=== PATIENT | female | born 2000 | race Asian ===

== ENCOUNTER 2023-04-02 18:16 | Inpatient (IN) ==
[2023-04-02] MEDS ORDERED: SODIUM CHLORIDE 0.9% 1,000 ML IV STA (18:28)
--- NOTE | 2023-04-02 18:45 | Emergency Department Note ---
Impression & Plan Thrombocytopenia ADMIT ED Provider Note HPI: History obtained from patient. 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 Patient states that while she was home from [facility] over winter break she was admitted at a hospital in [place] and treated with steroids for an episode of ITP with vaginal bleeding. Patient states during that admission in late February her platelet count was 1. Patient states ultimately she was discharged home with a uptrending platelet count of 114, patient states about 10 days ago she began to have some issues with mild vaginal bleeding that has gotten progressively worse. Patient states she is also had intermittent epistaxis during this time and some bruising and petechiae to the lower extremities. ROS: - Per HPI Differential Diagnosis: ITP, TTP, DIC, sepsis, dysfunctional uterine bleeding, amongst other potential pathologies. *Outpatient medications and allergy history reviewed. PE: General: Alert HEENT: Normocephalic, trachea midline Eyes: Extraocular eye movement is intact, no scleral erythema Pulmonary: Clear to auscultation bilaterally, no wheezing Cardio: Regular rate and rhythm GI: Abdomen is soft to palpation : No suprapubic tenderness, noninvasive vaginal exam performed with female RN at the bedside (Toña) does not show any evidence of gross bleeding, otherwise normal-appearing external genitalia without any lesions or swelling MSK: No evidence of trauma or malformation of the extremities, no edema Skin: Fine and scattered petechiae noted to the bilateral lower extremities mostly below the knee as well as the bilateral upper extremities to a lesser extent, multiple bruises to the bilateral lower extremities, no open wounds or lacerations Neuro: Alert, no focal deficits Psychiatric: Cooperative INDEPENDENT INTERPRETATIONS: media monitor: (As interpreted by myself): - An order was placed for continuous cardiac monitoring - Patient was noted to be in sinus rhythm with a rate of 117 Interventions provided in ED: -Packed red blood cell transfusion, platelet transfusion, IV fluid bolus, IVIG, IV Decadron Medical Decision Making: IV was established and lab work obtained, patient was placed on pvc monitor. Lab work shows no leukocytosis, hemoglobin is low at 5.0, MCV is normal, platelet count returns critically low at 0. There is no acute kidney injury, troponin is negative, testing is negative. Type and screen was performed, given that patient's hemoglobin is 5.0 she was consented at the blood side for both platelet transfusion and blood transfusion. Patient was given IV Decadron and IVIG here in the ED. I suspect ITP, patient does have anemia but I suspect this is from her vaginal bleeding, she does not have any renal failure, low suspicion for TTP. Will send for peripheral smear. I discussed the patient's presentation with on-call hematology/oncology, Dr. Scott, who recommended the patient receive platelets, steroids, packed red blood cells, and IVIG as ordered. Patient can be admitted to the medicine service per Dr. Scott and he will evaluate the patient in the morning given that she is currently hemodynamically stable. I did also discuss the patient's case with on-call CUSTOMER SERVICE ADVISOR, Dr. Meyers, who recommended noninvasive vaginal exam to make sure there is no evidence of critical hemorrhaging. He states also given the patient's hemodynamic stability that he will plan to see the patient in the morning and routine consultation which I think is appropriate. Noninvasive vaginal examination was performed with female RN at the bedside (Toña) and there is no evidence of any gross bleeding. On my reassessment the patient remains hemodynamically stable with blood pressure at 116/89. I discussed the above findings with the on-call hospitalist, Dr. Mojica, and the patient was placed for admission in stable condition. Consultants/Discussions held with other healthcare providers: -Hematology, Dr. Scott -CUSTOMER SERVICE ADVISOR, Dr. Meyers -Hospitalist, Dr. Mojica Disposition discussion held by myself with: -Patient Critical care time: 45 minutes -Stabilization of patient with critical thrombocytopenia and anemia requiring both packed red blood cell transfusion and platelet transfusion, time spent at the bedside, discussion with other physicians/consultants and arrangement of admission. Diagnosis: 1. Thrombocytopenia, acute, severe 2. Vaginal bleeding, acute 3. Anemia, acute Disposition: Admission Fortunato Flor DO Emergency Medicine Past Med/Surg History Social History Smoking Status: Never smoker Feels Safe at Home: Yes Allergies Allergies Allergy/AdvReac Type Severity Reaction Status Date / Time No Known Allergies Allergy Verified 04/02/23 19:53 Home Meds Home Medications Medication Instructions Recorded Confirmed doxycycline hyclate 100 mg capsule 100 mg PO BID 04/02/23 04/02/23 ferrous sulfate 325 mg (65 mg 325 mg PO DAILY 04/02/23 04/02/23 iron) tablet Results & Data (ED) Vital Signs Vital Signs - 24 hr 04/02/23 18:22 04/02/23 19:04 04/02/23 19:04 Temperature 36.3 C L Temperature Source Skin Pulse Rate 137 H Pulse Rate from SpO2 Sensor Respiratory Rate 20 Respiratory Effort / Characteristics Non-Labored Spontaneous Respiratory Depth Normal Respiratory Pattern Regular Blood Pressure 113/58 L Blood Pressure Mean 76 Pulse Oximetry 100 100 100 Oxygen Delivery Method Room Air Room Air Room Air Oxygen Flow Rate 0 Sepsis Recent Fever Within 48 Hours No Sepsis New/Unexplained Change in Mental Status N/A Sepsis Action Taken by Nursing No Action Required 04/02/23 19:04 04/02/23 19:04 04/02/23 19:10 Temperature Temperature Source Pulse Rate 122 H 120 H 127 H Pulse Rate from SpO2 Sensor 119 H 122 H Respiratory Rate 23 20 Respiratory Effort / Characteristics Respiratory Depth Respiratory Pattern Blood Pressure Blood Pressure Mean Pulse Oximetry 100 100 Oxygen Delivery Method Oxygen Flow Rate Sepsis Recent Fever Within 48 Hours Sepsis New/Unexplained Change in Mental Status Sepsis Action Taken by Nursing 04/02/23 19:20 04/02/23 19:30 04/02/23 19:30 Temperature Temperature Source Pulse Rate 124 H 116 H Pulse Rate from SpO2 Sensor 123 H 118 H Respiratory Rate 34 H 21 Respiratory Effort / Characteristics Respiratory Depth Respiratory Pattern Blood Pressure 119/75 Blood Pressure Mean 82 Pulse Oximetry 100 100 Oxygen Delivery Method Oxygen Flow Rate Sepsis Recent Fever Within 48 Hours Sepsis New/Unexplained Change in Mental Status Sepsis Action Taken by Nursing 04/02/23 19:40 04/02/23 19:50 04/02/23 20:00 Temperature Temperature Source Pulse Rate 120 H 121 H Pulse Rate from SpO2 Sensor 122 H 118 H Respiratory Rate 19 24 Respiratory Effort / Characteristics Respiratory Depth Respiratory Pattern Blood Pressure 106/74 Blood Pressure Mean 90 Pulse Oximetry 100 100 Oxygen Delivery Method Oxygen Flow Rate Sepsis Recent Fever Within 48 Hours Sepsis New/Unexplained Change in Mental Status Sepsis Action Taken by Nursing 04/02/23 20:00 04/02/23 20:10 04/02/23 20:20 Temperature Temperature Source Pulse Rate 128 H 120 H 116 H Pulse Rate from SpO2 Sensor 127 H 122 H 117 H Respiratory Rate 24 34 H 42 H Respiratory Effort / Characteristics Respiratory Depth Respiratory Pattern Blood Pressure Blood Pressure Mean Pulse Oximetry 100 100 100 Oxygen Delivery Method Room Air Oxygen Flow Rate Sepsis Recent Fever Within 48 Hours Sepsis New/Unexplained Change in Mental Status Sepsis Action Taken by Nursing 04/02/23 20:46 Temperature 37.3 C Temperature Source Oral Pulse Rate 119 H Pulse Rate from SpO2 Sensor Respiratory Rate 18 Respiratory Effort / Characteristics Respiratory Depth Respiratory Pattern Blood Pressure 106/66 Blood Pressure Mean 79 Pulse Oximetry 100 Oxygen Delivery Method Oxygen Flow Rate 0 Sepsis Recent Fever Within 48 Hours Sepsis New/Unexplained Change in Mental Status Sepsis Action Taken by Nursing Laboratory Data 04/02/23 18:54 04/02/23 18:54 Lab Results 04/02/23 04/02/23 Range/Units 18:54 19:34 WBC 5.89 (4.8-10.8) K/ul RBC 1.93 L (4.20-5.40) M/uL Hgb 5.0 L* (12.0-16.0) g/dl Hct 16.5 L* (37.0-47.0) % MCV 85.5 (80.0-100.0) fL MCH 25.9 (25.0-34.0) pg MCHC 30.3 L (32.0-36.0) g/dL RDW Std Deviation 66.2 H (36.4-46.3) fL RDW Coeff of Benedicto 22.2 H (11.5-14.5) % Plt Count 0 L* (130-400) K/uL Immature Gran % (Auto) 0.5 % Neut % (Auto) 73.6 % Lymph % (Auto) 18.8 % [place] % (Auto) 5.3 % Eos % (Auto) 1.5 % Baso % (Auto) 0.3 % Neut # (Auto) 4.33 (1.40-6.50) K/uL Lymph # (Auto) 1.11 L (1.20-3.40) K/uL [place] # (Auto) 0.31 (0.11-0.59) K/uL Eos # (Auto) 0.09 (0.00-0.50) K/uL Baso # (Auto) 0.02 (0.00-0.20) K/uL Immature Gran # (Auto) 0.03 (0.01-0.20) K/uL Absolute Nucleated RBC 0.08 (0.00-0.12) K/uL Nucleated RBC % (auto) 1.4 % Platelet Estimate Signific. Decreased L (Normal) Polychromasia 1+ Anisocytosis Present Tear Drop Cells 1+ PT 11.3 (9.0-12.0) Seconds INR 1.0 (0.9-1.1) Sodium 137 (136-145) mmol/L Potassium 3.5 (3.5-5.1) mmol/L Chloride 107 (98-107) mmol/L Carbon Dioxide 24 (21-32) mmol/L Anion Gap 6 (3-11) BUN 16 (6-23) mg/dl Creatinine 0.79 (0.6-1.2) mg/dl Est Cr Clr Drug Dosing 85.7 ml/min Est GFR ( Amer) 124.9 ml/min Est GFR (Non-Af Amer) 107.8 ml/min BUN/Creatinine Ratio 20.3 H (10-20) Glucose 123 H (70-99(Fasting)) mg/dl Calcium 8.7 (8.6-10.3) mg/dl Total Bilirubin 0.5 (0.2-1.0) mg/dl AST 23 (13-39) U/L ALT 12 (7-52) U/L Alkaline Phosphatase 35 (34-104) U/L Troponin I High Sens 3.6 (0-14) pg/ml Total Protein 6.6 (6.0-8.3) gm/dl Albumin 3.8 (3.4-5.0) gm/dl Globulin 2.8 (2.5-4.0) gm/dl Albumin/Globulin Ratio 1.4 (0.9-2) Lipase 99 H (11-82) U/L HCG, Qual Negative (Negative) Blood Type AB Positive Blood Type Recheck AB Positive Antibody Screen NEGATIVE Crossmatch See Detail Administered Medications Discontinued Medications Dexamethasone Sodium Phosphate (DexamethasonePf 10 Mg/Ml Vial) 40 mg IV NOW ONE Stop: 04/02/23 19:26 Last Admin: 04/02/23 20:00 Dose: 40 mg Documented By: TAMARA Sodium Chloride (Nss) 1,000 mls @ 999 mls/hr IV .Q1H1M STA Stop: 04/02/23 19:28 Last Infusion: 04/02/23 20:35 Dose: Infused Documented By: Admin: 04/02/23 19:23 Dose: 999 mls/hr Documented By: TAMARA Discharge Plan Visit Data Chief Complaint: Bleeding Stated Complaint: BLEEDING - VAGINAL, NOSE - HX BLEEDING DISORDER ED Provider: Fortunato Flor Discharge Problem: Thrombocytopenia Forms Stand Alone Forms: My [facility] [employer] Prescriptions Prescriptions: No Action doxycycline hyclate 100 mg Capsule 100 mg PO BID Rx Instructions: COURSE ENDS 04/07/23. ferrous sulfate 325 mg (65 mg iron) Tablet 325 mg PO DAILY Referrals Referrals: PCP,NO [Physician] -
[2023-04-02 19:24] LABS: Pregnancy Test, Serum Negative (Negative)
[2023-04-02] MEDS ORDERED: dexAMETHasone**PF** 10 MG/ML VIAL IV ONE (19:25)
[2023-04-02 19:26] LABS: Albumin Globulin Ratio 1.4 (0.9-2); Albumin Level 3.8 gm/dl (3.4-5.0); BUN Creatinine Ratio 20.3 (10-20); Bilirubin,Total 0.5 mg/dl (0.2-1.0); Calcium 8.7 mg/dl (8.6-10.3); Creatinine Clr Calc Pharmacy 85.7 ml/min; Est GFR (African American) 124.9 ml/min; Est GFR (Non-African American) 107.8 ml/min; Globulin 2.8 gm/dl (2.5-4.0); Potassium 3.5 mmol/L (3.5-5.1); Total Protein 6.6 gm/dl (6.0-8.3)
[2023-04-02 19:27] LABS: Hematocrit (blood only) 16.5 % (37.0-47.0); White Blood Count 5.89 K/ul (4.8-10.8)
[2023-04-02] MEDS ORDERED: SODIUM CHLORIDE 0.9% 250 ML IV PRN (19:27)
[2023-04-02] MEDS ORDERED: IMMUNE GLOBULIN (HUMAN) SOLN IV ONE (19:32)
[2023-04-02 19:34] LABS: Troponin I High Sensitivity 3.6 pg/ml (0-14)
[2023-04-02 19:40] LABS: Prothrombin Time 11.3 Seconds (9.0-12.0)
[2023-04-02 19:43] LABS: Anisocytosis Present; Basophils # (auto) 0.02 K/uL (0.00-0.20); Basophils % (auto) 0.3 %; Eosinophils # (auto) 0.09 K/uL (0.00-0.50); Eosinophils % (auto) 1.5 %; Immature Granulocytes # (auto) 0.03 K/uL (0.01-0.20); Immature Granulocytes % (auto) 0.5 %; Lymphocytes # (auto) 1.11 K/uL (1.20-3.40); Lymphocytes % (auto) 18.8 %; Mean Corpuscular Hemoglobin 25.9 pg (25.0-34.0); Mean Corpuscular Hgb Conc 30.3 g/dL (32.0-36.0); Mean Corpuscular Volume 85.5 fL (80.0-100.0); Monocytes # (auto) 0.31 K/uL (0.11-0.59); Monocytes % (auto) 5.3 %; Neutrophils # (auto) 4.33 K/uL (1.40-6.50); Neutrophils % (auto) 73.6 %; Nucleated RBC # (auto) 0.08 K/uL (0.00-0.12); Nucleated RBC % (auto) 1.4 %; Platelet Estimate Signific. Decreased (Normal); Polychromasia 1+; RDW Coefficient of Variation 22.2 % (11.5-14.5); RDW Standard Deviation 66.2 fL (36.4-46.3); Red Blood Count 1.93 M/uL (4.20-5.40); Tear Drop Cells 1+
[2023-04-02 19:44] LABS: Platelet Count 0 K/uL (130-400)
--- NOTE | 2023-04-02 20:34 | History & Physical Report ---
Date of Service April 02, 2023 Assessment & Plan (1) Thrombocytopenia: Plan: ITP dx in February 2023 at [facility], which required blood transfusion, IVIG, and steroids Patient endorses ongoing vaginal bleeding x 10 days, with worsening nausea, fatigue, LOPEZ, and lower extremity bruising She reports that she is currently on her menstrual cycle, and that she has had an irregular menstrual cycle for the past 2 years: bleeding 7-10 days, stops 2-3 days, then bleeding restarts; she notes clots in her menstrual cycle Hgb 5.0 and HCT 16.5 on arrival Platelet count 0 2 units pRBCs ordered in the ED; 2 additional units ordered and will be held Timed H&H for 30-60 minutes following second unit transfusion IVIG given in the ED Dexamethasone 40 mg IV given in the ED No leukocytosis; afebrile; normotensive on arrival Peripheral blood smear ordered, pending FE panel, reticulocyte count, vitamin B12, folate level ordered, pending PT/INR WNL Lipase mildly elevated at 99 hCG negative EKG revealed sinus tachycardia at 119 bpm; QTc 455 ROLL GRINDER OPERATOR consulted Hematology consulted Continue dexamethasone 40 mg IV daily x 4 days for now (will defer to hematology regarding daily dexamethasone dosage) IVIG to be given per ITP protocol; 1g/kg once daily for 1-2 days, with second dose being held if adequate platelet response >50,000 A.m. CBC, BMP (2) History of syphilis: Plan: Per patient On doxycycline 100 mg p.o. twice daily Patient denies PCN allergy Continue doxycycline Working on obtaining records from [facility] Plan Disposition: Admit to PCU Full code Regular diet VTE PPx: SCDs, encourage ambulation as tolerated (hold chemical DVT PPx in setting of thrombocytopenia) History of Present Illness Chief Complaint: Bleeding Primary Care Provider: [facility] Jhon is a 22yo female with reported PMH of ITP. She presented for vaginal bleeding x 10 days, and intermittent nausea, lightheadedness, fever. Patient was recently at [facility] in February 2023 where she was diagnosed with ITP and received IVIG, blood transfusion, and steroids. Before that, she was at [facility] in the [place], where she reportedly did not follow with a clinical faculty. She first noticed bruising a couple years ago, but there was no formal diagnosis of ITP until this February. She reports that she has had an irregular menstrual cycle for the past 2 years; she says that she usually bleeds for 7-10 days, then stops for 2-3 days, then begins bleeding again. She is currently on her menstrual cycle. She also reports that she has had clots with vaginal bleeding, which have recently started to get worse; she recently switched from tampons to pads. Patient denies SOB at rest, CP, and pleuritic CP. Of note, the patient reports that she has been taking doxycycline 100 mg twice daily for a prior diagnosis of syphilis. She reports that this medication has made her nauseous. She also reports that she has been taking iron supplements daily. Patient is tachycardic at 120 bpm at time of admission; her BP taken manually in the right arm is 110/74 at time of admission. ED Course: IVIG Decadron 40 mg IV NSS 1000 mL IV 2 units pRBCs ROS: Patient endorses intermittent fever, chills, fatigue (every time she gets up), REESE, dizziness, lightheadedness, recurrent epistaxis (which has made it hard to breathe at night), LOPEZ and chest palpitations (when climbing steps and with exertion), nausea, and ongoing vaginal bleeding. Patient denies sweating, chest pain, SOB at rest, vomiting, diarrhea, blood in the urine or stool, or numbness or tingling down the legs or arms. Allergies Allergy/AdvReac Type Severity Reaction Status Date / Time No Known Allergies Allergy Verified 04/02/23 19:53 Home Medications Medication Instructions Recorded Confirmed Type doxycycline hyclate 100 mg capsule 100 mg PO BID 04/02/23 04/02/23 History ferrous sulfate 325 mg (65 mg 325 mg PO DAILY 04/02/23 04/02/23 History iron) tablet Past Med/Surg History Medical History (Updated 04/02/23 @ 21:16 by Errol Milligan PA-C) History of syphilis Social History Smoking Status: Never smoker Feels Safe at Home: Yes Review of Systems Review of Systems: See HPI above Physical Exam Physical Exam: General: no acute distress; fatigued; pleasant affect; pallor; non-toxic appearing; cooperative HEENT: normocephalic, atraumatic; no scleral icterus; PERRLA w/ EOMs intact; moist mucus membrane; mild epistaxis from the right nostril, dried blood, nonpatent; vision and hearing grossly intact Neck: supple; no lymphadenopathy; trachea midline Skin: warm, dry without signs of tenting; no cyanosis; peripheral petechiae noted on the LEs and UEs bilaterally; bruising noted on the legs CV: chest wall NTP; RRR, mildly tachycardic at 115 bpm; S1/S2 normal; no murmurs/rubs/gallops; pulses intact and symmetric at radial, DP, and PT Lungs: no acute respiratory distress; symmetrical chest wall expansion; clear breath sounds across all lung ingram w/o adventitious sounds; no wheezing ABD: Soft, NTP; BS present; no rebound/guarding MSK: no tics or fasciculations; no edema noted in the LEs b/l, nonerythematous Neuro: A&Ox3; normal mood and affect; fluent speech; no focal deficits; sensation grossly intact in the LEs B/L Results & Data Results & Data Vital Signs (Past 12 Hours) Vital Signs Temp Pulse Resp BP Pulse Ox O2 Del Method O2 Flow Rate 04/02/23 20:20 116 H 42 H 100 Room Air 04/02/23 20:10 120 H 34 H 100 04/02/23 20:00 128 H 24 100 04/02/23 20:00 106/74 04/02/23 19:50 121 H 24 100 04/02/23 19:40 120 H 19 100 04/02/23 19:30 116 H 21 100 04/02/23 19:30 119/75 04/02/23 19:20 124 H 34 H 100 04/02/23 19:10 127 H 20 100 04/02/23 19:04 120 H 23 100 04/02/23 19:04 122 H 04/02/23 19:04 100 Room Air 04/02/23 19:04 100 Room Air 0 04/02/23 18:22 36.3 C L 137 H 20 113/58 L 100 Room Air Laboratory Results Abnormal lab results 04/02/23 Range/Units 18:54 RBC 1.93 L (4.20-5.40) M/uL Hgb 5.0 L* (12.0-16.0) g/dl Hct 16.5 L* (37.0-47.0) % MCHC 30.3 L (32.0-36.0) g/dL RDW Std Deviation 66.2 H (36.4-46.3) fL RDW Coeff of Benedicto 22.2 H (11.5-14.5) % Plt Count 0 L* (130-400) K/uL Lymph # (Auto) 1.11 L (1.20-3.40) K/uL Platelet Estimate Signific. Decreased L (Normal) BUN/Creatinine Ratio 20.3 H (10-20) Glucose 123 H (70-99(Fasting)) mg/dl Lipase 99 H (11-82) U/L Crossmatch See Detail Code Status & VTE Plan Code Status Full code VTE Prophylaxis Plan VTE Prophylaxis will be ordered: Yes Supervising Physician Co-Signing Physician Notes Attending addendum: I have physically seen this patient, have supervised the CHALO's activities, and agree with the H&P unless as otherwise noted. Assessment and Plan: ITP- Previous hospitalization in [facility] 03/12 treated with blood transfusion, IVIG and IV steroids Initial platelet count 0 Dexamethasone 40 mg IV x 1 IVIG x 1 Transfusion of platelets as indicated Consult to hematology/oncology Repeat laboratories in a.m. Anemia- Secondary to 10 days of menstrual bleeding Received 2 units PRBCs in ED, O2 on hold Repeat laboratories following transfusion and every morning Admit to monitored bed Iron, TIBC, reticulocyte count, B12, folate levels ordered and pending Self-reported history of syphilis- For now continue doxycycline 100 mg p.o. twice daily Need to confirm workup and diagnosis from [facility] PG Care Time/CCT Total # of Minutes Spent Total Time Spent with Patient: Total time spent is greater than 50% in coordination of care (as documented) at patient's floor/unit and/or counseling patient: [place] [address] INT INP/OBS CARE 255MIN Patient Type New Medical Decision Making Moderate Complexity Diagnoses Thrombocytopenia D69.6 History of syphilis Z86.19
[2023-04-02] MEDS ORDERED: Octagam 10% IVIG 10 gram bottle IV SCH (21:45)
[2023-04-02 22:16] LABS: Reticulocyte % 6.1 % (0.5-2.0); Reticulocytes # 0.12 10^6/uL (0.02-0.10)
[2023-04-02] MEDS ORDERED: ACETAMINOPHEN 325 MG TAB PO PRN (23:26)
[2023-04-02] MEDS ORDERED: ONDANSETRON INJ 2 MG/ML 2 ML VIAL IV PRN (23:26)
[2023-04-02 23:53] LABS: Folate (Folic Acid),Ser orPlas 16.61 ng/ml (>5.38)
[2023-04-03] MEDS: Octagam 10% IVIG 20 gram bottle IV SCH ×4 (00:14→15:47)
[2023-04-03 06:11] LABS: BUN Creatinine Ratio 12.3 (10-20); Calcium 8.7 mg/dl (8.6-10.3); Creatinine Clr Calc Pharmacy 92.8 ml/min; Est GFR (African American) 137.4 ml/min; Est GFR (Non-African American) 118.6 ml/min; Potassium 3.9 mmol/L (3.5-5.1)
[2023-04-03 06:31] LABS: Hematocrit (blood only) 24.8 % (37.0-47.0); Hemoglobin 8.1 g/dl (12.0-16.0); Mean Corpuscular Hemoglobin 28.1 pg (25.0-34.0); Mean Corpuscular Hgb Conc 32.7 g/dL (32.0-36.0); Mean Corpuscular Volume 86.1 fL (80.0-100.0); Nucleated RBC % (auto) 1.7 %; Platelet Count 1 K/uL (130-400); RDW Coefficient of Variation 18.4 % (11.5-14.5); RDW Standard Deviation 57.2 fL (36.4-46.3); Red Blood Count 2.88 M/uL (4.20-5.40); White Blood Count 5.92 K/ul (4.8-10.8)
[2023-04-03 06:32] LABS: Basophils # (auto) 0.01 K/uL (0.00-0.20); Basophils % (auto) 0.2 %; Immature Granulocytes # (auto) 0.06 K/uL (0.01-0.20); Lymphocytes # (auto) 0.64 K/uL (1.20-3.40); Lymphocytes % (auto) 10.8 %; Monocytes # (auto) 0.12 K/uL (0.11-0.59); Neutrophils # (auto) 5.09 K/uL (1.40-6.50); Polychromasia 1+
--- NOTE | 2023-04-03 07:30 | Hospitalist Progress Note ---
"Date of Service April 03, 2023 Assessment & Plan (1) Thrombocytopenia: Plan: Jhon is a 22F w/ PMH of ITP who presents for vaginal bleeding, nausea, and dyspnea in the setting of ITP. ITP | Menorrhagia | Anemia - 10 days of worsening vaginal bleeding, nausea, fatigue, dyspnea and LE bruising - Hx of irregular menses > 2 years LMP 03/24/23 w/ ongoing bleeding Menses often last 2-3 weeks - Presenting w/ Hgb 5.0/Hct 16.6 and Plt 0.0 Now s/p 2 units PRBC and 2 units platelets Received IVIG 1g/kg and Dexamethasone 40 mg IV in ED - No leukocytosis, fever, or hypotension - Hcg negative, Pelvic ultrasound unremarkable - Peripheral smear pending, Iron panel/B12/Folate normal - Consults: appreciate recommendations OBGYN - Pelvic exam with heaving vaginal bleeding, recommending IV Estrogen (Premarin) to stabilize uterine lining Hematology - Recommending ongoing IVIG (likely 2-3 days), continued Dexamethasone, and TXA, with ongoing consideration for Romiplostim for refractory ITP Recommend also checking HIV, Hep B, Hep C from thrombocytopenia standpoint - Crossmatched platelets ordered, pending testing/receipt from blood bank (likely Tuesday/Tuesday) - Transfuse platelets to maintain count >10,000 - Transfuse PRBC to maintain Hgb > 7 --- Continue IVIG, Dexamethasone, and transfusions PRN for Hgb <7 and Plt < 10,000 (3rd unit platelets running, crossmatched platelets pending) --- Proceed with IV Estrogen and TXA, risk of clotting is low given Plt Count of 1, and direct stabilization of uterine bleeding is required (2) History of syphilis: Plan: - Noted by patient, potential false positive given known ITP - Patient endorses 1 sexual partner who is negative for syphilis - Continue Doxycycline 100 mg PO BID --- Patient likely to benefit from outpatient STD testing 1-2 months following blood transfusion. Would include testing for hepatitis, HIV, and syphilis at that time. (3) Menorrhagia: (4) Anemia: Plan FENGI: Regular diet Code: Full DVT Ppx: SCDs Isolation: Bleeding Precautions Dispo: PCU Admission and Anticipated Discharge Date Admission Date: April 02, 2023 Supervising Physician Co-Signing Physician Notes Attending Physician Supervision Note: I independently interviewed and examined the patient and verified the victoria history and physical, reviewed labs and image studies and agree with findings and care plan noted above. Subjective 04/03: No acute events overnight. Patient notes subjective improvement in her dys pnea and nausea, but vaginal bleeding persists. She believes that her ecchymosis and petechiae are mildly improved. She denies any chest pain, pleuritic pain, abdominal pain, headaches, or lightheadedness. Review of Systems Review of Systems: See HPI above Physical Exam Physical Exam: General: NAD; pallor (improved), non-toxic HEENT: NCAT, PERRLA/EOMI, MMM, R epistaxis (resolved) Neck: supple; no LAD; trachea midline CV: RRR, normal S1/S2, no MRG Lungs: non-labored, no wheezing/rhonchi/rales, CTAB GI:: Soft, no TTP; BS present; no rebound/guarding Ext: no LE edema, 2+ peripheral pulses Neuro: A&Ox3; normal mood and affect Skin: no cyanosis, petechiae present to bilateral feet, hands, and anterior chest; bruising noted on the legs bilaterally. Results & Data Results & Data Vital Signs (Past 12 Hours) Vital Signs Temp Pulse Resp BP Pulse Ox O2 Del Method O2 Flow Rate 04/03/23 04:03 36.6 C 91 H 14 120/72 97 04/03/23 04:03 36.6 C 93 H 14 131/78 98 04/03/23 04:02 36.6 C 93 H 14 131/78 98 04/03/23 03:34 36.5 C 89 14 125/75 96 04/03/23 03:19 36.5 C 93 H 14 121/58 L 96 04/03/23 03:13 36.6 C 93 H 14 125/89 97 04/03/23 02:50 36.9 C 86 18 124/76 99 04/03/23 02:13 36.8 C 91 H 14 137/83 93 04/03/23 02:03 102 H 04/03/23 02:00 Room Air 04/03/23 02:00 36.8 C 14 Room Air 04/03/23 02:00 Room Air 04/03/23 01:30 124/83 04/03/23 01:30 102 H 33 H 98 04/03/23 01:15 127/76 04/03/23 01:15 103 H 22 98 04/03/23 01:13 37.0 C 95 H 16 127/76 98 04/03/23 01:00 92 H 27 H 121/77 99 04/03/23 00:45 109 H 20 119/79 99 04/03/23 00:43 37.1 C 99 H 119/70 99 04/03/23 00:30 102 H 26 H 110/77 99 04/03/23 00:28 37.1 C 105 H 18 110/77 98 04/03/23 00:28 37.1 C 103 H 18 128/85 98 04/03/23 00:15 128/85 04/03/23 00:15 100 H 27 H 98 04/03/23 00:13 102 H 24 99 04/03/23 00:13 121/89 04/03/23 00:11 37 C 04/03/23 00:11 37 C 105 H 22 121/89 99 0 04/03/23 00:07 98 H 22 04/02/23 23:45 107 H 28 H 99 04/02/23 23:45 124/81 04/02/23 23:30 106 H 24 115/81 98 04/02/23 23:17 114 H 04/02/23 23:15 107 H 17 114/75 99 04/02/23 23:10 37.5 C 113 H 18 123/79 99 04/02/23 23:00 110 H 19 123/79 99 04/02/23 22:45 128/80 04/02/23 22:45 110 H 30 H 99 Room Air 04/02/23 22:40 112 H 22 99 04/02/23 22:40 37.4 C 110 H 22 128/80 99 0 04/02/23 22:31 113 H 18 98 04/02/23 22:31 126/74 04/02/23 22:30 116 H 14 99 04/02/23 22:25 37.4 C 112 H 19 126/74 99 0 04/02/23 22:10 115 H 29 H 98 Room Air 04/02/23 22:10 37.1 C 114 H 30 H 120/79 100 0 04/02/23 22:00 113 H 24 100 04/02/23 22:00 37.1 C 115 H 31 H 120/79 99 0 04/02/23 21:59 120/79 04/02/23 21:59 108 H 33 H 99 04/02/23 21:50 123 H 24 100 04/02/23 21:45 122 H 24 99 04/02/23 21:45 125/87 04/02/23 21:40 124 H 23 99 04/02/23 21:30 120/76 04/02/23 21:30 116 H 17 99 04/02/23 21:20 113 H 20 98 Room Air 04/02/23 21:19 92 04/02/23 21:19 122/65 04/02/23 21:19 37.2 C 117 H 19 122/65 100 0 04/02/23 21:10 100 04/02/23 21:04 37.6 C H 120 H 18 116/89 99 0 04/02/23 21:00 116/89 04/02/23 21:00 117 H 30 H 99 04/02/23 20:51 121 H 18 100 04/02/23 20:51 118/81 04/02/23 20:50 123 H 27 H 100 04/02/23 20:48 123 H 27 H 100 04/02/23 20:48 115/74 04/02/23 20:46 37.3 C 119 H 18 106/66 100 0 04/02/23 20:40 116 H 31 H 100 04/02/23 20:33 116 H 25 H 100 04/02/23 20:33 106/66 04/02/23 20:30 117 H 26 H 100 04/02/23 20:30 125/56 L 04/02/23 20:20 116 H 42 H 100 Room Air 04/02/23 20:10 120 H 34 H 100 04/02/23 20:00 128 H 24 100 04/02/23 20:00 106/74 04/02/23 19:50 121 H 24 100 04/02/23 19:40 120 H 19 100 04/02/23 19:30 116 H 21 100 04/02/23 19:30 119/75 04/02/23 19:20 124 H 34 H 100 Resident Activity Tracking Resident Involvement: Resident Care Provided Care Provided: Adult Hospital Medicine"
[2023-04-03] MEDS ORDERED: DOXYCYCLINE HYCLATE 100 MG CAP PO SCH (09:00)
[2023-04-03] MEDS ORDERED: FERROUS SULFATE 325 MG TAB PO SCH (09:00)
[2023-04-03] MEDS ORDERED: SODIUM CHLORIDE 0.9% 250 ML IV PRN ×4 (09:05→17:56)
[2023-04-03] MEDS: DOXYCYCLINE HYCLATE 100 MG CAP PO SCH ×2 (09:25→20:59)
[2023-04-03] MEDS: FERROUS SULFATE 325 MG TAB PO SCH (09:25)
[2023-04-03] MEDS ORDERED: ONDANSETRON INJ 2 MG/ML 2 ML VIAL IV PRN (09:28)
[2023-04-03] MEDS ORDERED: ESTROGENS, CONJUGATED 25 MG in SYRINGE 0 ML IV SCH (09:30)
--- NOTE | 2023-04-03 09:35 | OB/GYN Consultation ---
Date of Consultation April 03, 2023 Assessment & Plan (1) Menorrhagia: Discussed with Dr. Bowen as well from the medicine service would recommend starting IV estrogen at this stage just to stop her bleeding once bleeding stops which should be relatively quickly in the case of the use of IV estrogen would recommend switching to a control pill patient does not have a history of migraines with aura and has no history of DVT. Also would recommend imaging just to rule out anatomic pathology. Pelvic ultrasound is ordered discussed trends examined acid with Dr. Bowen agree this would not be unreasonable discussed that further platelet transfusions may be considered by the medical team as well at this stage no surgical role but will await imaging Note quantitative hCG is negative from yesterday do not suspect clearly. While her bleeding is certainly exacerbated by the low platelet count related to her ITP I do think an estrogen-containing control pill would be highly helpful we discussed also and again initially starting with IV Premarin to get into more immediate stop of the bleeding but additionally nausea will be addressed with ondansetron Transexamic acid Would start on OCP once Premarin has stabilized bleeding History of Present Illness Reason for Consultation: 22-year-old woman asked to consult on the morning of April 03, 2023 patient states she has had an ongoing heavy menses for the last 11 days her periods over the last 4 months have been extremely heavy lasting long periods of time and passing clots she is not currently on control at this time she is wondering about starting it in fact if she could. The patient was initially seen in the hospital in [facility] and was treated with steroids and IVIG and blood transfusion she is currently hospitalized and is received blood transfusion and several units of platelets she states she is continuing to bleed she feels okay hemoglobin is over 8 this morning She has a past history of possibly syphilis although I do not have records she is currently on doxycycline for this Attending Physician: Cyndy Lang MD Allergies Allergy/AdvReac Type Severity Reaction Status Date / Time No Known Allergies Allergy Verified 04/02/23 19:53 Home Medications Medication Instructions Recorded Confirmed Type doxycycline hyclate 100 mg capsule 100 mg PO BID 04/02/23 04/02/23 History ferrous sulfate 325 mg (65 mg 325 mg PO DAILY 04/02/23 04/02/23 History iron) tablet Patient History Medical History (Updated 04/03/23 @ 12:04 by Kendrick Scott MD) History of syphilis Surgical History No history of previous surgery Family History Other No known health problems Social History Smoking Status: Never smoker Second Hand Exposure: No; Do You Dip or Chew Tobacco: No; Tobacco Cessation Education Requested by Patient: No Hx Alcohol Use: Yes (Infrequent) Alcohol type: other Hx Substance Use: Yes Last Used Substance: Unknown Preferred Language: Burkinan Medical Grade Shoemaker Required: No Beliefs That Will Affect Care: None Current Living Situation: Other Current Living Situation Comment: [employer] Feels Safe at Home: Yes Safety Concerns: Feels Safe At This Time Assistive Devices: None Physical Exam Constitutional: WD/WN, vitals as above well developed and well nourished Respiratory: normal respiratory effort, lungs clear to auscultation normal respiratory effort Cardiovascular: RRR, no murmur, no edema Gastrointestinal (Abdomen): normal bowel sounds, soft, nontender, no hepatosplenomegaly Genitourinary: External exam reveals some dark blood in the vagina she is not hemorrhaging there are no clots speculum exam is not performed at bedside nursing is present Results & Data Vital Signs (Past 12 Hours) Vital Signs Temp Pulse Pulse Resp BP BP Pulse Ox 04/03/23 08:19 97.9 F 78 17 122/65 99 04/03/23 04:03 97.9 F 91 H 14 120/72 97 04/03/23 04:03 97.9 F 93 H 14 131/78 98 04/03/23 04:02 97.9 F 93 H 14 131/78 98 04/03/23 03:34 97.7 F 89 14 125/75 96 04/03/23 03:19 97.7 F 93 H 14 121/58 L 96 04/03/23 03:13 97.9 F 93 H 14 125/89 97 04/03/23 02:50 98.4 F 86 18 124/76 99 04/03/23 02:13 98.2 F 91 H 14 137/83 93 04/03/23 02:03 102 H 04/03/23 02:00 04/03/23 02:00 98.2 F 14 04/03/23 02:00 04/03/23 01:30 124/83 04/03/23 01:30 102 H 33 H 98 04/03/23 01:15 127/76 04/03/23 01:15 103 H 22 98 04/03/23 01:13 98.6 F 95 H 16 127/76 98 04/03/23 01:00 92 H 27 H 121/77 99 04/03/23 00:45 109 H 20 119/79 99 04/03/23 00:43 98.8 F 99 H 119/70 99 04/03/23 00:30 102 H 26 H 110/77 99 04/03/23 00:28 98.8 F 105 H 18 110/77 98 04/03/23 00:28 98.8 F 103 H 18 128/85 98 04/03/23 00:15 128/85 04/03/23 00:15 100 H 27 H 98 04/03/23 00:13 102 H 24 99 04/03/23 00:13 121/89 04/03/23 00:11 98.6 F 04/03/23 00:11 98.6 F 105 H 22 121/89 99 04/03/23 00:07 98 H 22 04/02/23 23:45 107 H 28 H 99 04/02/23 23:45 124/81 04/02/23 23:30 106 H 24 115/81 98 04/02/23 23:17 114 H 04/02/23 23:15 107 H 17 114/75 99 04/02/23 23:10 99.5 F 113 H 18 123/79 99 04/02/23 23:00 110 H 19 123/79 99 04/02/23 22:45 128/80 04/02/23 22:45 110 H 30 H 99 04/02/23 22:40 112 H 22 99 04/02/23 22:40 99.3 F 110 H 22 128/80 99 04/02/23 22:31 113 H 18 98 04/02/23 22:31 126/74 04/02/23 22:30 116 H 14 99 04/02/23 22:25 99.3 F 112 H 19 126/74 99 04/02/23 22:10 115 H 29 H 98 04/02/23 22:10 98.8 F 114 H 30 H 120/79 100 04/02/23 22:00 113 H 24 100 04/02/23 22:00 98.8 F 115 H 31 H 120/79 99 04/02/23 21:59 120/79 04/02/23 21:59 108 H 33 H 99 04/02/23 21:50 123 H 24 100 04/02/23 21:45 122 H 24 99 04/02/23 21:45 125/87 04/02/23 21:40 124 H 23 99 O2 Del Method O2 Flow Rate 04/03/23 08:19 Room Air 04/03/23 04:03 04/03/23 04:03 04/03/23 04:02 04/03/23 03:34 04/03/23 03:19 04/03/23 03:13 04/03/23 02:50 04/03/23 02:13 04/03/23 02:03 04/03/23 02:00 Room Air 04/03/23 02:00 Room Air 04/03/23 02:00 Room Air 04/03/23 01:30 04/03/23 01:30 04/03/23 01:15 04/03/23 01:15 04/03/23 01:13 04/03/23 01:00 04/03/23 00:45 04/03/23 00:43 04/03/23 00:30 04/03/23 00:28 04/03/23 00:28 04/03/23 00:15 04/03/23 00:15 04/03/23 00:13 04/03/23 00:13 04/03/23 00:11 04/03/23 00:11 0 04/03/23 00:07 04/02/23 23:45 04/02/23 23:45 04/02/23 23:30 04/02/23 23:17 04/02/23 23:15 04/02/23 23:10 04/02/23 23:00 04/02/23 22:45 04/02/23 22:45 Room Air 04/02/23 22:40 04/02/23 22:40 0 04/02/23 22:31 04/02/23 22:31 04/02/23 22:30 04/02/23 22:25 0 04/02/23 22:10 Room Air 04/02/23 22:10 0 04/02/23 22:00 04/02/23 22:00 0 04/02/23 21:59 04/02/23 21:59 04/02/23 21:50 04/02/23 21:45 04/02/23 21:45 04/02/23 21:40 PG Care Time/CCT Total # of Minutes Spent Total Time Spent with Patient: Total time spent is greater than 50% in coordination of care (as documented) at patient's floor/unit and/or counseling patient: Coding Level of Care Code 75625 IN/OBS CONSULT LVL 3,45M Diagnoses Menorrhagia N92.0
[2023-04-03] MEDS: Octagam 10% IVIG 10 gram bottle IV SCH (11:00)
[2023-04-03] MEDS: [UNRECOGNIZED DRUG - OTHER] IV SCH ×3 (11:00→22:20)
[2023-04-03] MEDS: DEXTROSE 5% IV SCH ×3 (11:00→22:20)
[2023-04-03] MEDS: ESTROGENS IV SCH ×3 (11:00→22:20)
--- NOTE | 2023-04-03 11:09 | Oncology Consultation ---
Date of Consultation April 03, 2023 Assessment & Plan (1) Thrombocytopenia: The patient has severe thrombocytopenia, presumed to be ITP. At this point she is refractory to immunosuppression. She has received Decadron, today she will get her second dose of IVIG. If she does not respond to this dose of IVIG will hold IVIG treatments and instead switch her over to anti-D/rhogam (she is Rh+, blood group AB+). Will continue the Decadron 40 mg p.o./IV for another couple of days. At this point it seems that the patient is immune refractory, is not responding to immunosuppressive medication. Going forward we may have to utilize thrombopoietin agents. I checked with our hospital formulary and romiplostim is not available. If needed I will try to get Romiplostim arranged for her while she is in the hospital. Explained to the patient that romiplostim takes about 3 to 7 days to kick in. The idea is that if she does not respond to immunosuppressive medication then she will benefit from TPO mimetic's; especially keeping in mind she also received immunosuppression in [place]. I would also recommend completing a workup from a thrombocytopenia standpoint including retesting her for HIV, HCV, hepatitis B, syphilis. I will recommend transfusing platelets to maintain a platelet count of at least 10,000/mcL. Explained to the primary team and the patient at this point she is platelet transfusion refractory due to massive activation of her immune system which was destroying the transfuse platelets. I have recommended crossmatched platelets if she does not respond to the next unit of transfused platelets. Recheck platelets 1 hour after transfusion. Monitor H&H closely along with platelet count closely. (2) Menorrhagia: Patient has menorrhagia, most likely related to bleeding. She is getting tranexamic acid, platelet transfusions regularly. Leave rest of the management per our HOSTING ENGINEER colleagues for management of severe menorrhagia. (3) Anemia: The patient does have severe anemia most likely related to recurrent bleeding. At this point I will recommend to monitor H&H and check for hemodynamic stability. At this point she is hemodynamically stable from anemia standpoint. She has received a couple of blood transfusions however her hemoglobin has been stable around 8 g/dL. Transfuse to maintain a hemoglobin of 7 g/dL. (4) History of syphilis: I am not sure whether the patient has a true diagnosis of syphilis or whether it was a false positive results in the setting of ITP. Will leave it to primary team further workup from a sexually transmitted disease standpoint. Reportedly the patient is sexually active with only 1 partner who is also negative for syphilis. Plan Hematology will continue to follow and make appropriate recommendations. Thank you for this interesting hematological consult. History of Present Illness Reason for Consultation: Immune thrombocytopenic purpura Primary versus secondary ? Diagnosis of syphilis Attending Physician: Cyndy Lang MD History of Present Illness The patient is a very pleasant 22-year-old woman, originally from [facility], goes to [employer] for school. She was in [place] in the month of February when she noticed some nasal bleeding as well as vaginal bleeding. She was admitted to [facility], was diagnosed with ITP. Subsequently the patient was started on Decadron for 4 days, received IVIG. During her admission to [facility] her platelet count was in single digits, she was discharged home on Decadron and regular monitoring of platelets with a platelet count in 40,000/mcL. She was asked to get her platelet counts checked regularly and was trying to coordinate care through [facility] however even before she could get platelet count checked here, noticed epistaxis and increased vaginal bleeding. She came to the [facility] ER where a CBC was performed, revealed a platelet count of 0. I was called last night about this patient, based on my discussion with the ER physician, we decided to start the patient on IVIG, Decadron 40 mg p.o. daily, transfusing platelets, rechecking platelets. This morning her platelet count only improved to 1000/mcL. She continues to have vaginal bleeding. She is being administered tranexamic acid. She complains of fatigue, ongoing vaginal bleed as well as nasal bleed. She was still downstairs for a pelvic ultrasound. As I discussed with the patient, she was previously noted to have a syphilis infection, she is sexually active with her boyfriend. However her boyfriend is negative. Based on my review and discussion with the patient she has not been retested for syphilis. She has not finished her course of antibiotics which have been prescribed as the antibiotics make her sick Reports no fever or chills. No nausea vomiting. Allergies Allergy/AdvReac Type Severity Reaction Status Date / Time No Known Allergies Allergy Verified 04/02/23 19:53 Home Medications Medication Instructions Recorded Confirmed Type doxycycline hyclate 100 mg capsule 100 mg PO BID 04/02/23 04/02/23 History ferrous sulfate 325 mg (65 mg 325 mg PO DAILY 04/02/23 04/02/23 History iron) tablet Patient History Medical History (Updated 04/03/23 @ 12:04 by Kendrick Scott MD) History of syphilis Surgical History No history of previous surgery Family History Other No known health problems Social History Smoking Status: Never smoker Second Hand Exposure: No; Do You Dip or Chew Tobacco: No; Tobacco Cessation Education Requested by Patient: No Hx Alcohol Use: Yes (Infrequent) Alcohol type: other Hx Substance Use: Yes Last Used Substance: Unknown Preferred Language: Egyptian Tube Lancer Required: No Beliefs That Will Affect Care: None Current Living Situation: Other Current Living Situation Comment: [employer] Feels Safe at Home: Yes Safety Concerns: Feels Safe At This Time Assistive Devices: None Results & Data Vital Signs (Past 12 Hours) Vital Signs Temp Pulse Pulse Resp BP BP Pulse Ox 04/03/23 08:19 36.6 C 78 17 122/65 99 04/03/23 04:03 36.6 C 91 H 14 120/72 97 04/03/23 04:03 36.6 C 93 H 14 131/78 98 04/03/23 04:02 36.6 C 93 H 14 131/78 98 04/03/23 03:34 36.5 C 89 14 125/75 96 04/03/23 03:19 36.5 C 93 H 14 121/58 L 96 04/03/23 03:13 36.6 C 93 H 14 125/89 97 04/03/23 02:50 36.9 C 86 18 124/76 99 04/03/23 02:13 36.8 C 91 H 14 137/83 93 04/03/23 02:03 102 H 04/03/23 02:00 04/03/23 02:00 36.8 C 14 04/03/23 02:00 04/03/23 01:30 124/83 04/03/23 01:30 102 H 33 H 98 04/03/23 01:15 127/76 04/03/23 01:15 103 H 22 98 04/03/23 01:13 37.0 C 95 H 16 127/76 98 04/03/23 01:00 92 H 27 H 121/77 99 04/03/23 00:45 109 H 20 119/79 99 04/03/23 00:43 37.1 C 99 H 119/70 99 04/03/23 00:30 102 H 26 H 110/77 99 04/03/23 00:28 37.1 C 105 H 18 110/77 98 04/03/23 00:28 37.1 C 103 H 18 128/85 98 04/03/23 00:15 128/85 04/03/23 00:15 100 H 27 H 98 04/03/23 00:13 102 H 24 99 04/03/23 00:13 121/89 04/03/23 00:11 37 C 04/03/23 00:11 37 C 105 H 22 121/89 99 04/03/23 00:07 98 H 22 04/02/23 23:45 107 H 28 H 99 04/02/23 23:45 124/81 04/02/23 23:30 106 H 24 115/81 98 04/02/23 23:17 114 H 04/02/23 23:15 107 H 17 114/75 99 04/02/23 23:10 37.5 C 113 H 18 123/79 99 O2 Del Method O2 Flow Rate 04/03/23 08:19 Room Air 04/03/23 04:03 04/03/23 04:03 04/03/23 04:02 04/03/23 03:34 04/03/23 03:19 04/03/23 03:13 04/03/23 02:50 04/03/23 02:13 04/03/23 02:03 04/03/23 02:00 Room Air 04/03/23 02:00 Room Air 04/03/23 02:00 Room Air 04/03/23 01:30 04/03/23 01:30 04/03/23 01:15 04/03/23 01:15 04/03/23 01:13 04/03/23 01:00 04/03/23 00:45 04/03/23 00:43 04/03/23 00:30 04/03/23 00:28 04/03/23 00:28 04/03/23 00:04/03/23 00:04/03/23 00:04/03/23 00:04/03/23 00:11 04/03/23 00:11 0 04/03/23 00:07 04/02/23 23:45 04/02/23 23:45 04/02/23 23:30 04/02/23 23:17 04/02/23 23:04/02/23 23:10
--- NOTE | 2023-04-03 11:09 | Ultrasound Report ---
ULTRASOUND OF THE PELVIS CLINICAL HISTORY: Menorrhagia. COMPARISON STUDY: No priors. TECHNIQUE: Real-time, grayscale, and color flow sonography of the pelvis is performed both transabdom inally and endovaginally. Images are reviewed in the transverse and longitudinal planes. The endovagi nal examination was performed for better assessment of the ovaries and adnexa. FINDINGS: Uterus: The uterus is normal in size and echotexture, measuring 6.4 x 2.6 x 4.9 cm. Endometrium: The endometrium is normal in appearance, and the endometrial stripe is normal in thickne ss measuring up to 0.2 cm. Ovaries: The ovaries are normal in size and morphology. The right ovary measures 3.4 x 3.0 x 3.3 cm a nd the left ovary measures 3.6 x 1.8 x 2.4 cm. Follicles are seen bilaterally. Normal Doppler wavefor ms are shown within both ovaries. Pelvis: There is no free fluid in the cul-de-sac. No concerning adnexal lesion is seen. IMPRESSION: No acute sonographic abnormality is identified in the pelvis. ACT 112: Negative or not required by law. Electronically signed by: Agustín Millard M.D. 04/03/2023 11:08 AM
[2023-04-03] MEDS ORDERED: DEXAMETHASONE SOD INJ 4 MG/ML VIAL IV SCH (12:00)
[2023-04-03] MEDS ORDERED: dexAMETHasone 40 MG in DEXTROSE 5% 25 ML IV SCH (12:00)
[2023-04-03] MEDS ORDERED: TRANEXAMIC ACID 100 MG/ML 10 ML VIAL IV SCH (13:30)
[2023-04-03] MEDS: TRANEXAMIC ACID IV SCH ×2 (14:53→22:19)
[2023-04-03] MEDS: SODIUM CHLORIDE 0.9% IV SCH ×2 (14:53→22:19)
[2023-04-03 15:59] LABS: Hematocrit (blood only) 21.8 % (37.0-47.0); Hemoglobin 7.2 g/dl (12.0-16.0); Platelet Count 4 K/uL (130-400)
--- NOTE | 2023-04-03 18:40 | History & Physical Bridge Note ---
Date of Service April 03, 2023 History & Physical Bridge Note This evening's labs revealed platelet count of only 4000, hemoglobin dropped to 7.2. Discussed this with the primary team resident, given that she continues to bleed it may be appropriate to transfuse her another unit of packed red blood cells. Transfuse another unit of platelets. Recheck platelets posttransfusion. Tomorrow we will check the platelets again and decide whether she needs to continue IVIG or needs to be transition over to RHOGAM. Transfuse crossmatch platelets when available. Try to keep the platelet count over 10,000/ul. I also spoke with the patient's nurse on the floor as result the patient herself. Reviewed some of the records from [place] which are available to the patient electronically. her syphilis RPR as well as confirmatory testing were positive. She was evaluated by pediatric ID specialist in [place] and they had recommended that the patient take doxycycline for 4 weeks. 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 I recommended that she finish her course of antibiotics as was recommended by pediatric infectious disease specialist in [place] Explained to the patient that over here we may have to switch her over to thrombopoietin agents if she continues to be thrombocytopenic and does not respond to immunosuppression Explained to the patient that immunosuppression with stronger agents like rituximab may backfire as that may worsen the underlying syphilis infection. Over the evening patient reported that vaginal bleeding had decreased however she continues to have nasal bleeding.
--- NOTE | 2023-04-03 21:03 | Electrocardiogram Report ---
Test Reason : Blood Pressure : / mmHG Vent. Rate : 119 BPM Atrial Rate : 119 BPM P-R Int : 138 ms QRS Dur : 074 ms QT Int : 324 ms P-R-T Axes : 069 042 020 degrees QTc Int : 455 ms Sinus tachycardia Otherwise normal ECG No previous ECGs available Confirmed by Alejandro Zendejas ([id number]) on 04/03/2023 9:02:32 PM Referred By: REFERRED SELF Confirmed By:Alejandro Zendejas
[2023-04-03 23:31] LABS: Hematocrit (blood only) 25.8 % (37.0-47.0); Hemoglobin 8.5 g/dl (12.0-16.0); Platelet Count 13 K/uL (130-400)
[2023-04-04] MEDS: [UNRECOGNIZED DRUG - OTHER] IV SCH (02:06)
[2023-04-04] MEDS: ESTROGENS IV SCH (02:06)
[2023-04-04] MEDS: DEXTROSE 5% IV SCH (02:06)
[2023-04-04] MEDS: SODIUM CHLORIDE 0.9% IV SCH ×3 (06:35→21:48)
[2023-04-04] MEDS: TRANEXAMIC ACID IV SCH ×3 (06:35→21:48)
[2023-04-04 06:58] LABS: Hematocrit (blood only) 26.3 % (37.0-47.0); Hemoglobin 8.8 g/dl (12.0-16.0); Mean Corpuscular Hemoglobin 29.1 pg (25.0-34.0); Mean Corpuscular Hgb Conc 33.5 g/dL (32.0-36.0); Mean Corpuscular Volume 87.1 fL (80.0-100.0); Nucleated RBC # (auto) 0.04 K/uL (0.00-0.12); Nucleated RBC % (auto) 0.4 %; Platelet Count 14 K/uL (130-400); RDW Coefficient of Variation 19.7 % (11.5-14.5); RDW Standard Deviation 57.4 fL (36.4-46.3); Red Blood Count 3.02 M/uL (4.20-5.40); White Blood Count 11.01 K/ul (4.8-10.8)
[2023-04-04 07:09] LABS: Basophils # (auto) 0.02 K/uL (0.00-0.20); Basophils % (auto) 0.2 %; Immature Granulocytes # (auto) 0.07 K/uL (0.01-0.20); Immature Granulocytes % (auto) 0.6 %; Lymphocytes # (auto) 1.07 K/uL (1.20-3.40); Lymphocytes % (auto) 9.7 %; Monocytes # (auto) 0.53 K/uL (0.11-0.59); Monocytes % (auto) 4.8 %; Neutrophils # (auto) 9.32 K/uL (1.40-6.50); Neutrophils % (auto) 84.7 %; Polychromasia 2+
--- NOTE | 2023-04-04 07:15 | Hospitalist Progress Note ---
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 ITP | Menorrhagia | Anemia - 10 days of worsening vaginal bleeding, nausea, fatigue, dyspnea and LE bruising - Hx of irregular menses > 2 years - Presenting w/ Hgb 5.0/Hct 16.6 and Plt 0.0 Now s/p 2 units PRBC and 3 units platelets - No leukocytosis, fever, or hypotension - Peripheral smear pending, Iron panel/B12/Folate normal - Consults: appreciate recommendations OBGYN -d/c IV estrogen to transition to PO. - control BID for first 3 days, then daily Hematology - -Recommending one more dose of IVIG, continued Dexamethasone, and TXA -Transfuse 1 more unit more of platelets - high likelihood that this is secondary ITP in the setting of active syphilis infection - Continue Doxy for 4 weeks - Transfuse platelets to maintain count >10,000 - Transfuse PRBC to maintain Hgb > 7 --- Continue IVIG, Dexamethasone, and transfusions PRN for Hgb <7 and Plt < 10,000 (3rd unit platelets running (2) History of syphilis: Plan: - Noted by patient, potential false positive given known ITP - Patient endorses 1 sexual partner who is negative for syphilis - Continue Doxycycline 100 mg PO BID --- Patient likely to benefit from outpatient STD testing 1-2 months following blood transfusion. Would include testing for hepatitis, HIV, and syphilis at that time. (3) Menorrhagia: (4) Anemia: Plan FENGI: Regular diet Code: Full DVT Ppx: SCDs Isolation: Bleeding Precautions Dispo: PCU Admission and Anticipated Discharge Date Admission Date: April 02, 2023 Supervising Physician Co-Signing Physician Notes I personally examined the patient and verified all victoria points of history and exam, discussed case, and agree with decision making with Dr Marbin Antony vaginal bleeding slows down and nosebleed slowing down some as well vitals noted nad heent nc at mmm breathing unlabored no accessory muscles good effort skin no rashes no pallor or icterus neuro no focal deficits ITP, menorrhagia, acute blood loss anemia, ?ITP triggered by ?syphillis - continue current care. appears to be stabilizing, hopefully home soon Subjective 04/03: No acute events overnight. Patient notes subjective improvement in her dyspnea and nausea, but vaginal bleeding persists. She believes that her ecchymosis and petechiae are mildly improved. She denies any chest pain, pleuritic pain, abdominal pain, headaches, or lightheadedness. 04/04: Evaluated at AM. Refers feeling better. Nose bleeding and vaginal bleeding seem to be improving. Denied any chest pain, abdominal pain, lightheadedness, headache or any other symptoms Review of Systems Review of Systems: See HPI above Physical Exam Constitutional: WD/WN, vitals as above Respiratory: normal respiratory effort, lungs clear to auscultation Cardiovascular: RRR, no murmur, no edema Gastrointestinal (Abdomen): normal bowel sounds, soft, nontender, no hepatosplenomegaly Results & Data Results & Data Vital Signs (Past 12 Hours) Vital Signs Temp Pulse Pulse Resp BP BP BP 04/04/23 04:39 86 04/04/23 04:18 36.7 C 58 L 18 114/67 04/03/23 23:26 04/03/23 22:45 36.6 C 82 14 124/82 04/03/23 21:09 36.8 C 78 14 128/77 04/03/23 21:08 36.8 C 78 14 128/77 04/03/23 20:28 36.6 C 89 14 136/86 04/03/23 19:28 36.6 C 92 H 14 136/86 Pulse Ox Pulse Ox O2 Del Method O2 Del Method 04/04/23 04:39 01/15/24 04:18 98 Room Air 04/03/23 23:26 98 Room Air 04/03/23 22:45 98 Room Air 04/03/23 21:09 98 04/03/23 21:08 98 04/03/23 20:28 98 04/03/23 19:28 98"
--- NOTE | 2023-04-04 07:33 | Gynecologic Progress Note ---
Date of Service April 04, 2023 Assessment & Plan (1) Menorrhagia: Plan: Bleeding is improved her platelet count is slightly better being managed by the medical team I think she should continue her control pill twice a day she had 3 doses of IV Premarin which clearly has helped discussed taking the control pill 2 times a day for the first 3 days and then once daily a prescription will be sent to her pharmacy we will follow-up with the patient in 1 to 2 weeks Admission and Anticipated Discharge Date Admission Date: April 02, 2023 Subjective Patient is much improved this morning she is only having minimal spotting she received 3 doses of Premarin IV and then now has been switched this morning to control pills I would recommend this twice a day for the first 3 days and then once daily Results & Data Vital Signs (Past 12 Hours) Vital Signs Temp Pulse Pulse Resp BP BP BP 04/04/23 04:39 86 04/04/23 04:18 98.1 F 58 L 18 114/67 04/03/23 23:26 04/03/23 22:45 97.9 F 82 14 124/82 04/03/23 21:09 98.2 F 78 14 128/77 04/03/23 21:08 98.2 F 78 14 128/77 04/03/23 20:28 97.9 F 89 14 136/86 Pulse Ox Pulse Ox O2 Del Method O2 Del Method 04/04/23 04:39 04/04/23 04:18 98 Room Air 04/03/23 23:26 98 Room Air 04/03/23 22:45 98 Room Air 04/03/23 21:09 98 04/03/23 21:08 98 04/03/23 20:28 98 PG Care Time/CCT Total # of Minutes Spent Total Time Spent with Patient: Total time spent is greater than 50% in coordination of care (as documented) at patient's floor/unit and/or counseling patient: Coding Level of Care Code 33532 SUB INP/OBS CARE Diagnoses Menorrhagia N92.0
[2023-04-04 08:52] LABS: Calcium 8.2 mg/dl (8.6-10.3); Potassium 4.1 mmol/L (3.5-5.1)
[2023-04-04 08:57] LABS: Creatinine Clr Calc Pharmacy 90.3 ml/min; Est GFR (Non-African American) 114.7 ml/min
[2023-04-04] MEDS ORDERED: NORGESTIMATE/ETHINYL ESTRAD 0.25/0.035MG DSPK PO SCH (09:00)
[2023-04-04] MEDS: Octagam 10% IVIG 10 gram bottle IV SCH (09:05)
[2023-04-04] MEDS ORDERED: SODIUM CHLORIDE 0.9% 250 ML IV PRN (09:25)
[2023-04-04] MEDS: NORGESTIMATE/ETHINYL ESTRAD 0.25/0.035MG DSPK PO SCH ×2 (09:56→20:39)
[2023-04-04] MEDS: FERROUS SULFATE 325 MG TAB PO SCH (09:56)
[2023-04-04] MEDS: CYANOCOBALAMIN (B-12) 500 MCG TABLET PO SCH (09:56)
[2023-04-04] MEDS: DOXYCYCLINE HYCLATE 100 MG CAP PO SCH ×2 (10:05→20:38)
[2023-04-04] MEDS: Octagam 10% IVIG 20 gram bottle IV SCH ×2 (11:31→13:02)
--- NOTE | 2023-04-04 13:19 | Billing Data ---
Date of Service April 04, 2023 Coding Level of Care Code 03901 SUB INP/OBS CARE MIN
[2023-04-04 15:15] LABS: Hematocrit (blood only) 27.7 % (37.0-47.0); Mean Corpuscular Hemoglobin 28.9 pg (25.0-34.0); Mean Corpuscular Hgb Conc 32.5 g/dL (32.0-36.0); Mean Corpuscular Volume 89.1 fL (80.0-100.0); Nucleated RBC # (auto) 0.07 K/uL (0.00-0.12); Nucleated RBC % (auto) 0.5 %; Platelet Count 39 K/uL (130-400); RDW Coefficient of Variation 20.3 % (11.5-14.5); RDW Standard Deviation 59.2 fL (36.4-46.3); Red Blood Count 3.11 M/uL (4.20-5.40); White Blood Count 13.63 K/ul (4.8-10.8)
[2023-04-04 15:25] LABS: Anisocytosis Present; Basophils # (auto) 0.02 K/uL (0.00-0.20); Basophils % (auto) 0.1 %; Immature Granulocytes # (auto) 0.09 K/uL (0.01-0.20); Immature Granulocytes % (auto) 0.7 %; Lymphocytes # (auto) 1.54 K/uL (1.20-3.40); Lymphocytes % (auto) 11.3 %; Monocytes # (auto) 1.01 K/uL (0.11-0.59); Monocytes % (auto) 7.4 %; Neutrophils # (auto) 10.97 K/uL (1.40-6.50); Neutrophils % (auto) 80.5 %; Polychromasia 2+
--- NOTE | 2023-04-04 16:48 | Hematology/Oncology Prog Note ---
Date of Service April 04, 2023 Assessment & Plan (1) Thrombocytopenia: Plan: Platelet count slowly improving. 39,000 later today. Continue Decadron, continue IVIG. Hematology will continue to follow and make appropriate recommendations. At this point will not switch to other immunosuppressive agents or start thrombotic agents as the patient is responding nicely. (2) History of syphilis: Plan: See my bridge note from 04/03/2023. Patient documented to have syphilis by confirmatory testing in [place]. Treatment per infectious disease specialist which was seen in [place]. Discussed this with our colleagues in hospital internal medicine. Plan Hematology will continue to follow the patient and make appropriate recommendations. Continue monitoring platelet count regularly. Discharge per primary team colleagues. Follow-up outpatient hematology. Admission and Anticipated Discharge Date Admission Date: April 02, 2023 Subjective Patient doing better, bleeding is improved. Nasal bleeding as well as vaginal bleeding has improved significantly Results & Data Vital Signs (Past 12 Hours) Vital Signs Temp Pulse Pulse Resp BP BP BP 04/04/23 16:18 36.4 C L 69 18 105/68 04/04/23 15:16 78 04/04/23 11:40 36.5 C 70 18 115/76 04/04/23 10:57 36.6 C 62 18 117/74 04/04/23 10:24 36.6 C 97 H 18 114/72 04/04/23 10:09 36.6 C 76 18 113/74 04/04/23 09:49 36.4 C L 72 20 117/71 04/04/23 07:55 65 04/04/23 07:21 36.3 C L 54 L 18 120/81 Pulse Ox O2 Del Method 04/04/23 16:18 96 Room Air 04/04/23 15:16 04/04/23 11:40 98 Room Air 04/04/23 10:57 97 04/04/23 10:24 97 04/04/23 10:09 97 04/04/23 09:49 97 04/04/23 07:55 04/04/23 07:21 95 Room Air
[2023-04-04] MEDS: dexAMETHasone 4 MG TAB PO SCH (18:01)
[2023-04-04 23:52] LABS: Rapid Plasma Reagin Reactive (Nonreactive)
[2023-04-05] MEDS: SODIUM CHLORIDE 0.9% IV SCH (05:29)
[2023-04-05] MEDS: TRANEXAMIC ACID IV SCH (05:29)
[2023-04-05 07:00] LABS: BUN Creatinine Ratio 21.9 (10-20); Calcium 8.3 mg/dl (8.6-10.3); Creatinine Clr Calc Pharmacy 105.8 ml/min; Est GFR (African American) 148.9 ml/min; Est GFR (Non-African American) 128.5 ml/min; Potassium 4.1 mmol/L (3.5-5.1)
[2023-04-05 07:10] LABS: Anisocytosis Present; Basophils # (auto) 0.01 K/uL (0.00-0.20); Basophils % (auto) 0.1 %; Hematocrit (blood only) 27.4 % (37.0-47.0); Hemoglobin 9.1 g/dl (12.0-16.0); Immature Granulocytes # (auto) 0.09 K/uL (0.01-0.20); Immature Granulocytes % (auto) 0.8 %; Lymphocytes # (auto) 0.65 K/uL (1.20-3.40); Lymphocytes % (auto) 5.9 %; Mean Corpuscular Hemoglobin 29.3 pg (25.0-34.0); Mean Corpuscular Hgb Conc 33.2 g/dL (32.0-36.0); Mean Corpuscular Volume 88.1 fL (80.0-100.0); Monocytes # (auto) 0.08 K/uL (0.11-0.59); Monocytes % (auto) 0.7 %; Neutrophils # (auto) 10.19 K/uL (1.40-6.50); Neutrophils % (auto) 92.5 %; Nucleated RBC # (auto) 0.04 K/uL (0.00-0.12); Nucleated RBC % (auto) 0.4 %; Platelet Count 49 K/uL (130-400); Polychromasia 2+; RDW Coefficient of Variation 19.6 % (11.5-14.5); RDW Standard Deviation 58.7 fL (36.4-46.3); Red Blood Count 3.11 M/uL (4.20-5.40); White Blood Count 11.02 K/ul (4.8-10.8)
--- NOTE | 2023-04-05 07:42 | Gynecologic Progress Note ---
Date of Service April 05, 2023 Assessment & Plan (1) Menorrhagia: (2) Thrombocytopenia: (3) History of syphilis: (4) Anemia: Plan bleeding has stopped, has 2 more days of bid ocps and then qd ocps, apri, sent to pharmacy per Dr. Meyers. She needs to call office to schedule followup with him in office in about 2wks. what to expect with ocps reviewed. Admission and Anticipated Discharge Date Admission Date: April 02, 2023 Subjective pt sleeping. answers questions but barely opens her eyes. notes no further vaginal bleeding. Physical Exam Constitutional: WD/WN, vitals as above Respiratory: normal respiratory effort, lungs clear to auscultation Cardiovascular: Rate/Rhythm: regular rate and regular rhythm Gastrointestinal (Abdomen): Percussion/Palpation: abdomen soft; abdomen nontender and no guarding Neurologic: grossly normal Psychiatric: A+Ox3, euthymic affect Results & Data Vital Signs (Past 12 Hours) Vital Signs Temp Pulse Pulse Resp BP BP Pulse Ox 04/05/23 07:36 98.1 F 55 L 15 107/69 97 04/05/23 03:38 97.5 F L 69 14 109/68 97 04/04/23 23:53 98.8 F 80 18 100/62 98 04/04/23 23:00 04/04/23 22:50 105 H 04/04/23 19:47 98.2 F 80 16 116/71 99 O2 Del Method O2 Del Method 04/05/23 07:36 Room Air 04/05/23 03:38 Room Air 04/04/23 23:53 Room Air 04/04/23 23:00 Room Air 04/04/23 22:50 04/04/23 19:47 Room Air PG Care Time/CCT Total # of Minutes Spent Total Time Spent with Patient: Total time spent is greater than 50% in coordination of care (as documented) at patient's floor/unit and/or counseling patient: Coding Level of Care Code 44879 IN/OBS CONSULT LVL 2,35M Diagnoses Menorrhagia N92.0 Thrombocytopenia D69.6 History of syphilis Z86.19 Anemia D64.9
[2023-04-05] MEDS: dexAMETHasone 4 MG TAB PO SCH (08:51)
[2023-04-05] MEDS: NORGESTIMATE/ETHINYL ESTRAD 0.25/0.035MG DSPK PO SCH (08:54)
[2023-04-05] MEDS: DOXYCYCLINE HYCLATE 100 MG CAP PO SCH (08:54)
[2023-04-05] MEDS: FERROUS SULFATE 325 MG TAB PO SCH (08:55)
--- NOTE | 2023-04-05 09:10 | Hospitalist Progress Note ---
"Date of Service April 05, 2023 Assessment & Plan (1) Thrombocytopenia: Plan: Jhon is a 22F w/ PMH of ITP who presents for vaginal bleeding, nausea, and dyspnea in the setting of ITP. ITP | Menorrhagia | Anemia - 10 days of worsening vaginal bleeding, nausea, fatigue, dyspnea and LE bruising - Hx of irregular menses > 2 years - Presenting w/ Hgb 5.0/Hct 16.6 and Plt 0.0 Now s/p 2 units PRBC and 3 units platelets - Bleeding has resolved. 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 Hgb 9.1 --- Continue IVIG, Dexamethasone, and transfusions PRN for Hgb <7 and Plt < 10,000 (3rd unit platelets running (2) History of syphilis: Plan: -Syphilis RPR on [place] records confirmatory test positive - Patient endorses 1 sexual partner who is negative for syphilis - Continue Doxycycline 100 mg PO BID for 4 weeks (3) Menorrhagia: (4) Anemia: Plan FENGI: Regular diet Code: Full DVT Ppx: SCDs Isolation: Bleeding Precautions Dispo: PCU Admission and Anticipated Discharge Date Admission Date: April 02, 2023 Review of Systems Review of Systems: See HPI above Physical Exam Constitutional: WD/WN, vitals as above Respiratory: normal respiratory effort, lungs clear to auscultation Cardiovascular: RRR, no murmur, no edema Gastrointestinal (Abdomen): normal bowel sounds, soft, nontender, no hepatosplenomegaly Results & Data Results & Data Vital Signs (Past 12 Hours) Vital Signs Temp Pulse Pulse Resp BP BP Pulse Ox 04/05/23 07:36 36.7 C 55 L 15 107/69 97 04/05/23 03:38 36.4 C L 69 14 109/68 97 04/04/23 23:53 37.1 C 80 18 100/62 98 04/04/23 23:00 04/04/23 22:50 105 H O2 Del Method O2 Del Method 04/05/23 07:36 Room Air 04/05/23 03:38 Room Air 04/04/23 23:53 Room Air 04/04/23 23:00 Room Air 04/04/23 22:50"
[2023-04-05 10:12] LABS: HBSAG NON-REACTIVE (NON-REACTIVE)
[2023-04-05] MEDS: CYANOCOBALAMIN (B-12) 500 MCG TABLET PO SCH (10:12)
--- NOTE | 2023-04-05 12:25 | Discharge Summary ---
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 She presented for vaginal bleeding x 10 days, and intermittent nausea, lightheadedness, fever. Patient was recently at [facility] in February 2023 where she was diagnosed with ITP and received IVIG, blood transfusion, and steroids. Before that, she was at [facility] [place] where she reportedly did not follow with a test automation architect. She first noticed bruising a couple years ago, but there was no formal diagnosis of ITP until this February. She reports that she has had an irregular menstrual cycle for the past 2 years; she says that she usually bleeds for 7-10 days, then stops for 2-3 days, then begins bleeding again. She is currently on her menstrual cycle. She also reports that she has had clots with vaginal bleeding, which have recently started to get worse; she recently switched from tampons to pads. Patient denies SOB at rest, CP, and pleuritic CP. Of note, the patient reports that she has been taking doxycycline 100 mg twice daily for a prior diagnosis of syphilis. She reports that this medication has made her nauseous. She also reports that she has been taking iron supplements daily. Patient is tachycardic at 120 bpm at time of admission; her BP taken manually in the right arm is 110/74 at time of admission. ED Course: IVIG Decadron 40 mg IV NSS 1000 mL IV 2 units pRBCs ROS: Patient endorses intermittent fever, chills, fatigue (every time she gets up), REESE, dizziness, lightheadedness, recurrent epistaxis (which has made it hard to breathe at night), LOPEZ and chest palpitations (when climbing steps and with exertion), nausea, and ongoing vaginal bleeding. Patient denies sweating, chest pain, SOB at rest, vomiting, diarrhea, blood in the urine or stool, or numbness or tingling down the legs or arms. Admission Exam Per Admitting Provider General: no acute distress; fatigued; pleasant affect; pallor; non-toxic appear ing; cooperative HEENT: normocephalic, atraumatic; no scleral icterus; PERRLA w/ EOMs intact; moist mucus membrane; mild epistaxis from the right nostril, dried blood, nonpatent; vision and hearing grossly intact Neck: supple; no lymphadenopathy; trachea midline Skin: warm, dry without signs of tenting; no cyanosis; peripheral petechiae noted on the LEs and UEs bilaterally; bruising noted on the legs CV: chest wall NTP; RRR, mildly tachycardic at 115 bpm; S1/S2 normal; no murmurs/rubs/gallops; pulses intact and symmetric at radial, DP, and PT Lungs: no acute respiratory distress; symmetrical chest wall expansion; clear breath sounds across all lung ingram w/o adventitious sounds; no wheezing ABD: Soft, NTP; BS present; no rebound/guarding MSK: no tics or fasciculations; no edema noted in the LEs b/l, nonerythematous Neuro: A&Ox3; normal mood and affect; fluent speech; no focal deficits; sensation grossly intact in the LEs B/L Principal Diagnosis ITP Discharge Exam Constitutional WD/WN, vitals as above Respiratory normal respiratory effort, lungs clear to auscultation Cardiovascular RRR, no murmur, no edema Skin mild peripheral petechia Discharge Data Allergies Allergy/AdvReac Type Severity Reaction Status Date / Time No Known Allergies Allergy Verified 04/02/23 19:53 Consultations 04/02/23 19:40 Consult Hematology Routine 04/02/23 20:01 Consult Obstetrics Routine 04/02/23 20:10 ED Decision to Admit Stat Ordered Studies Labs 04/02/23 04/02/23 04/03/23 18:54 19:34 05:23 WBC 5.89 5.92 RBC 1.93 L 2.88 L Hgb 5.0 L* 8.1 L D Hct 16.5 L* 24.8 L MCV 85.5 86.1 MCH 25.9 28.1 MCHC 30.3 L 32.7 RDW Std Deviation 66.2 H 57.2 H RDW Coeff of Benedicto 22.2 H 18.4 H Plt Count 0 L* 1 L* D Immature Gran % (Auto) 0.5 1.0 Neut % (Auto) 73.6 86.0 Lymph % (Auto) 18.8 10.8 [place] % (Auto) 5.3 2.0 Eos % (Auto) 1.5 0.0 Baso % (Auto) 0.3 0.2 Reticulocyte % (Auto) 6.1 H Neut # (Auto) 4.33 5.09 Lymph # (Auto) 1.11 L 0.64 L [place] # (Auto) 0.31 0.12 Eos # (Auto) 0.09 0.00 Baso # (Auto) 0.02 0.01 Reticulocyte # 0.12 H Immature Gran # (Auto) 0.03 0.06 Absolute Nucleated RBC 0.08 0.10 Nucleated RBC % (auto) 1.4 1.7 Platelet Estimate Signific. Decreased L Polychromasia 1+ 1+ Anisocytosis Present Tear Drop Cells 1+ Peripher Smr Path Cons PT 11.3 INR 1.0 Sodium 137 133 L Potassium 3.5 3.9 Chloride 107 106 Carbon Dioxide 24 21 Anion Gap 6 6 BUN 16 9 Creatinine 0.79 0.73 Est Cr Clr Drug Dosing 85.7 92.8 Est GFR ( Amer) 124.9 137.4 Est GFR (Non-Af Amer) 107.8 118.6 BUN/Creatinine Ratio 20.3 H 12.3 Glucose 123 H 200 H Calcium 8.7 8.7 Magnesium 2.0 Iron 145 TIBC 369 Unsaturated IBC 224 Transferrin % Sat 39 Total Bilirubin 0.5 AST 23 ALT 12 Alkaline Phosphatase 35 Troponin I High Sens 3.6 Total Protein 6.6 Albumin 3.8 Globulin 2.8 Albumin/Globulin Ratio 1.4 Lipase 99 H Vitamin B12 252 Folate 16.61 HCG, Qual Negative RPR Titer RPR Hepatitis B Ab, Qual Hep Bs Antigen Hep Bs Ag Confirmation Hepatitis C Ab (EIA) HIV (1&2) Ag & Ab Conf Blood Type AB Positive Blood Type Recheck AB Positive Antibody Screen NEGATIVE Crossmatch See Detail 04/03/23 04/03/23 04/04/23 15:11 22:25 05:42 WBC 11.01 H RBC 3.02 L Hgb 7.2 L 8.5 L 8.8 L Hct 21.8 L 25.8 L 26.3 L MCV 87.1 MCH 29.1 MCHC 33.5 RDW Std Deviation 57.4 H RDW Coeff of Benedicto 19.7 H Plt Count 4 L* D 13 L* D 14 L* Immature Gran % (Auto) 0.6 Neut % (Auto) 84.7 Lymph % (Auto) 9.7 [place] % (Auto) 4.8 Eos % (Auto) 0.0 Baso % (Auto) 0.2 Reticulocyte % (Auto) Neut # (Auto) 9.32 H Lymph # (Auto) 1.07 L [place] # (Auto) 0.53 Eos # (Auto) 0.00 Baso # (Auto) 0.02 Reticulocyte # Immature Gran # (Auto) 0.07 Absolute Nucleated RBC 0.04 Nucleated RBC % (auto) 0.4 Platelet Estimate Polychromasia 2+ Anisocytosis Tear Drop Cells Peripher Smr Path Cons PT INR Sodium Cancelled Potassium Cancelled Chloride Cancelled Carbon Dioxide Cancelled Anion Gap Cancelled BUN Cancelled Creatinine Cancelled Est Cr Clr Drug Dosing Cancelled Est GFR ( Amer) Cancelled Est GFR (Non-Af Amer) Cancelled BUN/Creatinine Ratio Cancelled Glucose Cancelled Calcium Cancelled Magnesium Iron TIBC Unsaturated IBC Transferrin % Sat Total Bilirubin AST ALT Alkaline Phosphatase Troponin I High Sens Total Protein Albumin Globulin Albumin/Globulin Ratio Lipase Vitamin B12 Folate HCG, Qual RPR Titer 1:2 H RPR Reactive A Hepatitis B Ab, Qual REACTIVE A Hep Bs Antigen NON-REACTIVE Hep Bs Ag Confirmation TNP Hepatitis C Ab (EIA) NON-REACTIVE HIV (1&2) Ag & Ab Conf NON-REACTIVE Blood Type Blood Type Recheck Antibody Screen Crossmatch 04/04/23 04/04/23 04/05/23 07:59 14:45 05:30 WBC 13.63 H 11.02 H RBC 3.11 L 3.11 L Hgb 9.0 L 9.1 L Hct 27.7 L 27.4 L MCV 89.1 88.1 MCH 28.9 29.3 MCHC 32.5 33.2 RDW Std Deviation 59.2 H 58.7 H RDW Coeff of Benedicto 20.3 H 19.6 H Plt Count 39 L D 49 L Immature Gran % (Auto) 0.7 0.8 Neut % (Auto) 80.5 92.5 Lymph % (Auto) 11.3 5.9 [place] % (Auto) 7.4 0.7 Eos % (Auto) 0.0 0.0 Baso % (Auto) 0.1 0.1 Reticulocyte % (Auto) Neut # (Auto) 10.97 H 10.19 H Lymph # (Auto) 1.54 0.65 L [place] # (Auto) 1.01 H 0.08 L Eos # (Auto) 0.00 0.00 Baso # (Auto) 0.02 0.01 Reticulocyte # Immature Gran # (Auto) 0.09 0.09 Absolute Nucleated RBC 0.07 0.04 Nucleated RBC % (auto) 0.5 0.4 Platelet Estimate Polychromasia 2+ 2+ Anisocytosis Present Present Tear Drop Cells Peripher Smr Path Cons PT INR Sodium 133 L 132 L Potassium 4.1 4.1 Chloride 107 105 Carbon Dioxide 22 22 Anion Gap 4 5 BUN 15 14 Creatinine 0.75 0.64 Est Cr Clr Drug Dosing 90.3 105.8 Est GFR ( Amer) 133.0 148.9 Est GFR (Non-Af Amer) 114.7 128.5 BUN/Creatinine Ratio 20.0 21.9 H Glucose 121 H 179 H Calcium 8.2 L 8.3 L Magnesium Iron TIBC Unsaturated IBC Transferrin % Sat Total Bilirubin AST ALT Alkaline Phosphatase Troponin I High Sens Total Protein Albumin Globulin Albumin/Globulin Ratio Lipase Vitamin B12 Folate HCG, Qual RPR Titer RPR Hepatitis B Ab, Qual Hep Bs Antigen Hep Bs Ag Confirmation Hepatitis C Ab (EIA) HIV (1&2) Ag & Ab Conf Blood Type Blood Type Recheck Antibody Screen Crossmatch Pelvis Ultrasound 04/03/23 09:29 ULTRASOUND OF THE PELVIS CLINICAL HISTORY: Menorrhagia. COMPARISON STUDY: No priors. TECHNIQUE: Real-time, grayscale, and color flow sonography of the pelvis is performed both transabdominally and endovaginally. Images are reviewed in the tr ansverse and longitudinal planes. The endovaginal examination was performed for better assessment of the ovaries and adnexa. FINDINGS: Uterus: The uterus is normal in size and echotexture, measuring 6.4 x 2.6 x 4.9 cm. Endometrium: The endometrium is normal in appearance, and the endometrial stripe is normal in thickness measuring up to 0.2 cm. Ovaries: The ovaries are normal in size and morphology. The right ovary measures 3.4 x 3.0 x 3.3 cm and the left ovary measures 3.6 x 1.8 x 2.4 cm. Follicles are seen bilaterally. Normal Doppler waveforms are shown within both ovaries. Pelvis: There is no free fluid in the cul-de-sac. No concerning adnexal lesion is seen. IMPRESSION: No acute sonographic abnormality is identified in the pelvis. ACT 112: Negative or not required by law. Electronically signed by: Agustín Millard M.D. 04/03/2023 11:08 AM Transvaginal US 04/03/23 09:30 ULTRASOUND OF THE PELVIS CLINICAL HISTORY: Menorrhagia. COMPARISON STUDY: No priors. TECHNIQUE: Real-time, grayscale, and color flow sonography of the pelvis is performed both transabdominally and endovaginally. Images are reviewed in the transverse and longitudinal planes. The endovaginal examination was performed for better assessment of the ovaries and adnexa. FINDINGS: Uterus: The uterus is normal in size and echotexture, measuring 6.4 x 2.6 x 4.9 cm. Endometrium: The endometrium is normal in appearance, and the endometrial stripe is normal in thickness measuring up to 0.2 cm. Ovaries: The ovaries are normal in size and morphology. The right ovary measures 3.4 x 3.0 x 3.3 cm and the left ovary measures 3.6 x 1.8 x 2.4 cm. Follicles are seen bilaterally. Normal Doppler waveforms are shown within both ovaries. Pelvis: There is no free fluid in the cul-de-sac. No concerning adnexal lesion is seen. IMPRESSION: No acute sonographic abnormality is identified in the pelvis. ACT 112: Negative or not required by law. Electronically signed by: Agustín Millard M.D. 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 Thrombocytopenia: ITP | Menorrhagia | Anemia - 10 days of worsening vaginal bleeding, nausea, fatigue, dyspnea and LE bruising - Hx of irregular menses > 2 years - Presenting w/ Hgb 5.0/Hct 16.6 and Plt 0.0- needing 2 units PRBC and 3 units platelets - Bleeding resolved with TXA and IV estrogen. -Received IVIG and Decadron - Sent home to continue 3 more days of Decadron OBGYN - control BID for first 2 days, then daily- Prescription sent -Follow up 2 weeks outpatient Hematology - - Continued Dexamethasone, and TXA - - high likelihood that this is secondary ITP in the setting of active syphilis infection -At discharge platelets 49,00, Hgb 9.1 History of syphilis: -Syphilis RPR on [place] records confirmatory test positive - RPR titer 1:2, RPR: reactive, T.pallidum AB (FTA-ABS) pending - Patient endorses 1 sexual partner who is negative for syphilis - Continue Doxycycline 100 mg PO BID 5 more days to complete course of 4 weeks Total Time Total Time Spent Total Time Spent (In Minutes): <30 Discharge Plan Discharge Items Patient Disposition: Home - Self-Care Reason For Visit: ANEMIA, HGB 5, ITP Discharge Diagnosis: Idiopathic thrombocytopenic purpura Anemia Activity: Per Instructions section Non-emergency contact: Primary Care Provider Call non-emergency contact if: you have any medication questions, your symptoms worsen, your pain is unusual for you and you have a fever Follow-up/Referrals: [place] [Primary Care Provider] - (Patient will need to make f/u with PCP as their office is closed today. Thank you! ) Diet: Regular Addtl Attending Provider Instructions: During your admission you were transfused with blood units as well with platelets due to low count on both. The vaginal bleeding were control with IV estrogen and tranexamic acid. Today your platelets are up to 49,000. We cons ulted [facility] , they recommended steroids and IVIG (main treatment for ITP). you will be discharge with: Decadron 40 mg, you will take 1 tab PO daily for 3 days more control pill named Apri - You will take 1 tab twice a day until tomorrow. Then you will continue taking 1 pill daily Doxycycline 100 mg, you will take 1 tab twice a day for 4 weeks (until April 10, to complete previous course) . It's very important to be adherent as well to use sunscreen while taking the medication. We additionally recommended Vitamin B12 as well. Take one tab a day (1,000 mcg daily) Take your medications as instructed; do not skip a dose of your medicines. Make sure all of your doctors know every medicine you are taking (including [id number] medicines, vitamins, and supplements). Call your primary care provider before taking any new medicines (including [id number] medicines, vitamins, and supplements), because some of these may interact with your current medications, or may make your symptoms worse. Tell your primary care provider if you cannot afford your medications. Follow-up appointments: We requested with our case management to schedule appo intment with [facility] and as well to establish with an primary care doctor. CALL 911 OR GO TO THE EMERGENCY DEPARTMENT if you experience any of the following: Sudden, severe abdominal pain or nausea/vomiting Severe chest pain, or chest pain that radiates (moves) to your jaw or arm Sudden, severe shortness of breath or difficulty breathing Thank you for allowing us to participate in your care. Addtl Customer Care Specialist Provider Instructions: CALL [phone] to schedule appointment with Dr[address] Meyers in OBGYN office (building in front of hospital) for 2wks. Pending Studies at Discharge: No Stand-Alone Forms: My [facility], Work/School Release, Smoking Cessation Medications and DC Order Prescriptions: New dexamethasone 20 mg tablet 40 mg PO DAILY 3 Days Qty: 6 0RF desogestrel-ethinyl estradiol [Apri] 0.15-0.03 mg tablet 1 tab PO DAILY Qty: 84 0RF cyanocobalamin (vitamin B-12) [Vitamin B-12] 1,000 mcg tablet 1,000 mcg PO DAILY 30 Days Qty: 30 0RF doxycycline hyclate 100 mg Capsule 100 mg PO BID 5 Days Qty: 10 0RF Continued ferrous sulfate 325 mg (65 mg iron) Tablet 325 mg PO DAILY Discontinued doxycycline hyclate 100 mg Capsule 100 mg PO BID Rx Instructions: COURSE ENDS 04/07/23. Discharge Orders: Discharge Order (Routine); Ordered 04/05/23 Ordered By: Stephon Antony Admission Data Admit Date/Time: 04/02/23 21:30 Attending Provider: Aidan Garcia Admit Provider: Venkat Mojica Primary Care Provider: [facility] Other Providers: Kendrick Scott; Kandace Meyers; Venkat Mojica Other Interventions: Discharge Summary Assessment (RN) Last Done: 04/05/23 12:28 Supervising Physician Co-Signing Physician Notes I personally examined the patient and verified all victoria points of history and ex am, discussed case, and agree with decision making with Dr Marbin Antony bleeding has stopped vitals noted nad heent nc at mmm breathing unlabored no accessory muscles good effort skin no rashes no pallor or icterus neuro no focal deficits ITP, menorrhagia, acute blood loss anemia, ?ITP triggered by ?syphillis - safe/stable for home. finish marcie. ongoing outpt f/u and management of ITP - s etting up local PCP and hematology since she is on campus here//her docs at home are hours away/problem is currently active and requiring more active management than is likely feasible from a distance."
--- NOTE | 2023-04-05 12:55 | Billing Data ---
Date of Service April 05, 2023 Coding Level of Care Code 35019 IN/OBS DISCH 30 MIN/LESS
--- NOTE | 2023-04-05 13:59 | Hematology/Oncology Prog Note ---
Date of Service April 05, 2023 Assessment & Plan Admission and Anticipated Discharge Date Admission Date: April 02, 2023 Results & Data Vital Signs (Past 12 Hours) Vital Signs Temp Pulse Pulse Resp BP BP Pulse Ox 04/05/23 12:28 36.9 C 75 16 109/68 109/67 96 04/05/23 11:24 36.9 C 75 16 109/67 96 04/05/23 09:53 57 L 04/05/23 07:36 36.7 C 55 L 15 107/69 97 04/05/23 03:38 36.4 C L 69 14 109/68 97 O2 Del Method 04/05/23 12:28 04/05/23 11:24 Room Air 04/05/23 09:53 04/05/23 07:36 Room Air 04/05/23 03:38 Room Air
== END 2023-04-05 14:54 | disposition home or self-care (01) | DRG 813 ==
LOC: ED 18:16 → EDINP 21:30 → SUATTDRO 21:30 → 2S 23:25

== ENCOUNTER 2023-04-07 23:44 | Inpatient (IN) ==
[2023-04-08] MEDS ORDERED: dexAMETHasone**PF** 10 MG/ML VIAL IV ONE (00:17)
--- NOTE | 2023-04-08 00:25 | Emergency Department Note ---
History of Present Illness General Chief complaint: Abnormal Labs/Diagnostic Testing Stated complaint: ABNORMAL BLOOD WORK Time Seen by Provider: 04/08/23 00:01 Source: patient, RN notes reviewed and old records reviewed (I reviewed a discharge summary from recent hospitalization 2 days ago) Mode of arrival: ambulatory Limitations: no limitations History of Present Illness This patient is a 22-year-old female who has a history of ITP, comes in after having low platelets. She was in the hospital and was discharged a couple days ago she had a outpatient labs done yesterday and was called today because her platelet count was 7000 down from 49. She was sent home on dexamethasone but did not take it because the pharmacy would not fill it due to insurance issues. She says she feels okay otherwise she does have more petechiae on her arms and face but no headache no chest pain no shortness of breath no blood in her stool she had a recent heavy menstrual period when she was in the hospital but no vaginal bleeding at present. When she has been hospitalized before she has had IVIG blood transfusions and IV steroids. Home Medications Medication Instructions Recorded Confirmed Type ferrous sulfate 325 mg (65 mg 325 mg PO DAILY 04/02/23 04/08/23 History iron) tablet cyanocobalamin (vitamin B-12) 1,000 mcg PO DAILY 30 days #30 tabs 04/05/23 04/08/23 Rx 1,000 mcg tablet (Vitamin B-12) dexamethasone 20 mg tablet 40 mg (2 x 20 mg) PO DAILY 3 days 04/05/23 04/08/23 Rx #6 tabs doxycycline hyclate 100 mg capsule 100 mg PO BID 5 days #10 caps 04/05/23 04/08/23 Rx desogestrel 0.15 mg-ethinyl 1 tab PO DAILY 04/08/23 04/08/23 History estradiol 0.03 mg tablet (Cyred EQ) Allergies Allergy/AdvReac Type Severity Reaction Status Date / Time No Known Allergies Allergy Verified 04/08/23 00:54 Past Med/Surg History Medical History (Updated 04/08/23 @ 02:59 by Navin Vergara MD) Idiopathic thrombocytopenic purpura (ITP) History of syphilis Surgical History No history of previous surgery Family History Other No known health problems Social History Smoking Status: Never smoker Second Hand Exposure: No; Do You Dip or Chew Tobacco: No; Hx Alcohol Use: Yes (Infrequent) Alcohol type: other Hx Substance Use: Yes Last Used Substance: Unknown Preferred Language: Belarusian Communication Ability: Effective Registered Midwife Required: No Beliefs That Will Affect Care: None Current Living Situation: Other Current Living Situation Comment: Managed Objects Dorm Feels Safe at Home: Yes Assistive Devices: None Review of Systems A total of 10 systems reviewed and were otherwise negative Physical Exam Vital Signs Vital Signs - 24 hr 04/07/23 23:52 04/08/23 00:06 04/08/23 01:28 Temperature 36.8 C Temperature Source Oral Pulse Rate 83 79 77 Pulse Rhythm Respiratory Rate 18 18 Respiratory Effort / Characteristics Non-Labored Spontaneous Respiratory Depth Normal Respiratory Pattern Regular Blood Pressure 106/71 108/77 Blood Pressure Mean 82 81 Blood Pressure Position Sitting Pulse Oximetry 98 99 Oxygen Delivery Method Room Air Sepsis Recent Fever Within 48 Hours No Sepsis New/Unexplained Change in Mental Status N/A Sepsis Action Taken by Nursing No Action Required 04/08/23 01:30 04/08/23 01:37 Temperature Temperature Source Pulse Rate 63 80 Pulse Rhythm Regular Respiratory Rate 18 18 Respiratory Effort / Characteristics Respiratory Depth Respiratory Pattern Blood Pressure 115/72 Blood Pressure Mean 82 Blood Pressure Position Pulse Oximetry 99 99 Oxygen Delivery Method Room Air Sepsis Recent Fever Within 48 Hours Sepsis New/Unexplained Change in Mental Status Sepsis Action Taken by Nursing General: Well developed well nourished young female who in no acute distress, breathing comfortably on room air. Normal speech HEENT: Normal cephalic atraumatic. Pupils are equal round and reactive to light. Extraocular movements are intact. Oropharynx is pink with moist mucous membranes. No swelling of the mouth lips or tongue. Neck: Supple with a midline trachea. No meningeal signs or stiffness, no JVD or bruits. No Stridor. Chest: Clear to auscultation bilaterally. No wheezes or rhonchi. No increased work of breathing. Heart: Regular rate and rhythm without murmurs or gallops. Abdomen: Soft nontender, nondistended without rebound guarding or rigidity. Extremities: No cyanosis clubbing or edema. No calf tenderness or assymetry Spine/Back. Non tender to palpation. No CVA tenderness Skin: Good turgor.She does have some scattered petechiae on her arms and lesser degree on her face Neurologic exam: Cranial nerves two through 12 are intact. Motor and sensation are intact and symmetrical throughout. Course Administered Medications Discontinued Medications Dexamethasone Sodium Phosphate (DexamethasonePf 10 Mg/Ml Vial) 40 mg IV NOW ONE Stop: 04/08/23 00:18 Last Admin: 04/08/23 01:23 Dose: 40 mg Documented By: [facility] Medical Decision Making Differential Diagnosis ITP, thrombocytopenia, anemia, infection, bone marrow process Medical Records Attestation: I reviewed the patient's medical records. Home Medications Current Medication List: was personally reviewed by me Laboratory Data Attestation: I reviewed the patient's lab results. 04/08/23 00:21 04/08/23 00:21 Lab Results 04/08/23 Range/Units 00:21 WBC 6.56 (4.8-10.8) K/ul RBC 4.02 L (4.20-5.40) M/uL Hgb 11.4 L (12.0-16.0) g/dl Hct 34.0 L (37.0-47.0) % MCV 84.6 (80.0-100.0) fL MCH 28.4 (25.0-34.0) pg MCHC 33.5 (32.0-36.0) g/dL RDW Std Deviation 55.6 H (36.4-46.3) fL RDW Coeff of Benedicto 18.1 H (11.5-14.5) % Plt Count 1 L* D (130-400) K/uL Immature Gran % (Auto) 0.8 % Neut % (Auto) 49.4 % Lymph % (Auto) 40.9 % [place] % (Auto) 6.9 % Eos % (Auto) 1.8 % Baso % (Auto) 0.2 % Neut # (Auto) 3.25 (1.40-6.50) K/uL Lymph # (Auto) 2.68 (1.20-3.40) K/uL [place] # (Auto) 0.45 (0.11-0.59) K/uL Eos # (Auto) 0.12 (0.00-0.50) K/uL Baso # (Auto) 0.01 (0.00-0.20) K/uL Immature Gran # (Auto) 0.05 (0.01-0.20) K/uL Platelet Estimate Signific. Decreased L (Normal) Polychromasia 1+ Sodium 132 L (136-145) mmol/L Potassium 3.7 (3.5-5.1) mmol/L Chloride 101 (98-107) mmol/L Carbon Dioxide 26 (21-32) mmol/L Anion Gap 5 (3-11) BUN 20 (6-23) mg/dl Creatinine 0.82 (0.6-1.2) mg/dl Est Cr Clr Drug Dosing 82.6 ml/min Est GFR ( Amer) 119.4 ml/min Est GFR (Non-Af Amer) 103.0 ml/min BUN/Creatinine Ratio 24.4 H (10-20) Glucose 94 (70-99(Fasting)) mg/dl Calcium 8.6 (8.6-10.3) mg/dl Total Bilirubin 0.7 (0.2-1.0) mg/dl AST 27 (13-39) U/L ALT 43 (7-52) U/L Alkaline Phosphatase 32 L (34-104) U/L Total Protein 8.9 H (6.0-8.3) gm/dl Albumin 3.5 (3.4-5.0) gm/dl Globulin 5.4 H (2.5-4.0) gm/dl Albumin/Globulin Ratio 0.6 L (0.9-2) Lipase 128 H (11-82) U/L HCG, Qual Negative (Negative) Blood Type AB Positive Antibody Screen NEGATIVE MDM Narrative This patient comes in as described above. She was placed in room a 11 I did order labs. She had a platelet count of 7000 yesterday. She is not taking her dexamethasone due to being unable to get it filled as an outpatient. I did call and talk to Dr. Rosas, who is on-call for heme-onc she recommended to be give her dexamethasone 40 mg IV and she will need to come in the hospital where she gets platelet transfusion if she gets less than 5000 and also give her IVIG while she is in the hospital. Blood work was obtained I did discuss case with Dr. Mary Brantley who saw the patient ER will admit her for these measures. The patient will be admitted/observed. The patient's platelet count did come back low at [address] Brantley has ordered for platelets. Continuous cardiac monitoring: Orders placed in EMR for continuous cardiac monitoring call upon my evaluation patient was noted to be in sinus bradycardia with a rate of 58 Impression & Plan Idiopathic thrombocytopenic purpura (ITP), Thrombocytopenia, Petechiae, Sinus bradycardia, Not currently Discharge Plan Visit Data Chief Complaint: Abnormal Labs/Diagnostic Testing Stated Complaint: ABNORMAL BLOOD WORK ED Provider: Navin Vergara Discharge Problem: Idiopathic thrombocytopenic purpura (ITP), Thrombocytopenia, Petechiae, Sinus bradycardia, Not currently Patient Disposition: Admitted As Inpatient Discharge Instructions Interventions: ED Discharge Assessment Last Done: 04/08/23 02:17 Forms Stand Alone Forms: My [facility] [employer] Prescriptions Prescriptions: No Action desogestrel-ethinyl estradiol [Cyred EQ] 0.15-0.03 mg tablet 1 tab PO DAILY ferrous sulfate 325 mg (65 mg iron) Tablet 325 mg PO DAILY dexamethasone 20 mg tablet 40 mg PO DAILY 3 Days Qty: 6 0RF Rx Instructions: PER PT "PHARMACY DID NOT HAVE READY WHEN PICKED UP OTHER MEDS". cyanocobalamin (vitamin B-12) [Vitamin B-12] 1,000 mcg tablet 1,000 mcg PO DAILY 30 Days Qty: 30 0RF doxycycline hyclate 100 mg Capsule 100 mg PO BID 5 Days Qty: 10 0RF Rx Instructions: PER PT "SHOULD HAVE FINISHED, BUT FORGOT SEVERAL DOSES, STILL HAVE 2-3 DAYS WORTH OF MED". Referrals Referrals: [facility] [Primary Care Provider] -
[2023-04-08 01:06] LABS: Albumin Globulin Ratio 0.6 (0.9-2); Albumin Level 3.5 gm/dl (3.4-5.0); BUN Creatinine Ratio 24.4 (10-20); Bilirubin,Total 0.7 mg/dl (0.2-1.0); Calcium 8.6 mg/dl (8.6-10.3); Creatinine Clr Calc Pharmacy 82.6 ml/min; Est GFR (African American) 119.4 ml/min; Globulin 5.4 gm/dl (2.5-4.0); Potassium 3.7 mmol/L (3.5-5.1); Total Protein 8.9 gm/dl (6.0-8.3)
[2023-04-08 01:16] LABS: Pregnancy Test, Serum Negative (Negative)
[2023-04-08 01:28] LABS: Basophils # (auto) 0.01 K/uL (0.00-0.20); Basophils % (auto) 0.2 %; Eosinophils # (auto) 0.12 K/uL (0.00-0.50); Eosinophils % (auto) 1.8 %; Hemoglobin 11.4 g/dl (12.0-16.0); Immature Granulocytes # (auto) 0.05 K/uL (0.01-0.20); Immature Granulocytes % (auto) 0.8 %; Lymphocytes # (auto) 2.68 K/uL (1.20-3.40); Lymphocytes % (auto) 40.9 %; Mean Corpuscular Hemoglobin 28.4 pg (25.0-34.0); Mean Corpuscular Hgb Conc 33.5 g/dL (32.0-36.0); Mean Corpuscular Volume 84.6 fL (80.0-100.0); Monocytes # (auto) 0.45 K/uL (0.11-0.59); Monocytes % (auto) 6.9 %; Neutrophils # (auto) 3.25 K/uL (1.40-6.50); Neutrophils % (auto) 49.4 %; Platelet Count 1 K/uL (130-400); Platelet Estimate Signific. Decreased (Normal); Polychromasia 1+; RDW Coefficient of Variation 18.1 % (11.5-14.5); RDW Standard Deviation 55.6 fL (36.4-46.3); Red Blood Count 4.02 M/uL (4.20-5.40); White Blood Count 6.56 K/ul (4.8-10.8)
--- NOTE | 2023-04-08 02:16 | History & Physical Report ---
Date of Service April 08, 2023 Assessment & Plan (1) Idiopathic thrombocytopenic purpura (ITP): Plan: 22yo female with ITP recent hospitalization for menorrhagia, symptomatic anemia and thrombocytopenia returning to [facility] with thrombocytopenia. Patient was unable to obtain her Dexamethasone as an outpatient. Repeat labs performed today with Plt of 7 and she was told to come to the ER. Repeat CBC in the ER with Plt of 1. Patient had some epistaxis earlier but no current bleeding. -Admit to medical with telemetry -Will transfuse 3u platelets due to platelet count of 1. Transfuse for platelets <10 -Dexamethasone 40mg IV administered in the ER. Will continue Dexamethasone 40mg IV daily for the next several days and assess platelet response -IVIG 1mg/kg - dose ordered for now -Repeat CBC in AM. -Hematology consultation appreciated -Additional workup performed for thrombocytopenia includes HIV and HCV which were both NEGATIVE -Continue OCPs - started on DC last admission for management of menorrhagia (2) History of syphilis: Plan: Patient with history of syphilis for which she is being treated with Doxycycline. Unsure why she wasn't treated with PCN -no allergy or intolerance reported. She had a reactove RPR with titer of 1:2 during her last hospitalization. Her Treponema pallidum Ab (FTA-ABS) is still pending. -Continue Doxycycline 100mg po BID to complete her course. Last day 04/09/23 History of Present Illness Chief Complaint: thrombocytopenia Primary Care Provider: [facility] Jhon Hernandes is a pleasant 22yo female with history of syphilis and ITP presenting with thrombocytopenia. Patient was recently hospitalized at [facility] from 04/02 - 04/05/23 after presenting with heavy vaginal bleeding, nausea, fever and lightheadedness. She was found to be anemic with Hgb of 5 and thrombocytopenic with platelet count of 0. She was transfused with 2u PRBCs and 3u platelets. Her vaginal bleeding was treated with TXA and IV estrogen. Her ITP was treated with Decadron 40mg IV daily and IVIG. She was discharged home in improved condition with prescriptions for Decadron x 3 additional days as well as Doxycycline x 5 additional days. Platelet count on day of discharge=49 Patient felt well after discharge. She was unable to fill her prescription for Decadron. Reported that the pharmacy did not have the medication in stock. She noted a small amount of epistaxis. She had her blood counts checked again today and her platelet count was found to be 7 so she was instructed to return to the ER. In the ER she is afebrile, HD stable ER Course: Dexamethasone 40mg IV Allergies Allergy/AdvReac Type Severity Reaction Status Date / Time No Known Allergies Allergy Verified 04/08/23 00:54 Home Medications Medication Instructions Recorded Confirmed Type ferrous sulfate 325 mg (65 mg 325 mg PO DAILY 04/02/23 04/08/23 History iron) tablet cyanocobalamin (vitamin B-12) 1,000 mcg PO DAILY 30 days #30 tabs 04/05/23 04/08/23 Rx 1,000 mcg tablet (Vitamin B-12) dexamethasone 20 mg tablet 40 mg (2 x 20 mg) PO DAILY 3 days 04/05/23 04/08/23 Rx #6 tabs doxycycline hyclate 100 mg capsule 100 mg PO BID 5 days #10 caps 04/05/23 04/08/23 Rx desogestrel 0.15 mg-ethinyl 1 tab PO DAILY 04/08/23 04/08/23 History estradiol 0.03 mg tablet (Cyred EQ) Past Med/Surg History Medical History (Updated 04/08/23 @ 02:24 by Kya Brantley DO) Idiopathic thrombocytopenic purpura (ITP) History of syphilis Surgical History No history of previous surgery Family History Other No known health problems Social History Smoking Status: Never smoker Second Hand Exposure: No; Do You Dip or Chew Tobacco: No; Hx Alcohol Use: Yes (Infrequent) Alcohol type: other Hx Substance Use: Yes Last Used Substance: Unknown Preferred Language: Panamanian Communication Ability: Effective Dishcloth Folder Required: No Beliefs That Will Affect Care: None Current Living Situation: Other Current Living Situation Comment: [employer] Dorm Feels Safe at Home: Yes Assistive Devices: None Review of Systems Review of Systems: All systems reviewed & are unremarkable except as noted in HPI & below Physical Exam Physical Exam: General: patient resting comfortably, NAD, non-toxic in appearance, AA&O x 4 Skin: warm, dry, intact, scattered ecchymosis noted on forearms and hands from prior IV sites, bruising on bilateral legs. No petechiae. No mucosal bleeding/oozing. HEENT: NC/AT, PERRL, EOMI, anicteric sclera, conjunctiva without injection, external ear normal to inspection and nontender, nares patent, moist mucus membranes, dentition intact, no oropharyngeal lesions, neck supple, trachea midline, no LAD, no thyromegaly, no JVD Heart: +S1/S2, regular, no m/r/g Lungs: equal air entry bilaterally, no rales/rhonchi/wheezes Abd: +BS, soft, NT/ND, no masses/organomegaly/ascites Ext: warm, 2+ pulses in UE/LE bilaterally, no clubbing/cyanosis or edema Neuro: nonfocal, patient AA&O x 4, speech intact, no facial droop, moving all extremities on command with equal strength 5/5 Results & Data Results & Data Vital Signs (Past 12 Hours) Vital Signs Temp Pulse Resp BP Pulse Ox O2 Del Method 04/08/23 01:37 80 18 99 Room Air 04/08/23 01:30 63 18 115/72 99 04/08/23 01:28 77 18 108/77 99 04/08/23 00:06 79 04/07/23 23:52 36.8 C 83 18 106/71 98 Room Air Laboratory Results Laboratory Results WBC 6.56 K/ul (4.8-10.8) 04/08/23 00:21 RBC 4.02 M/uL (4.20-5.40) L 04/08/23 00:21 Hgb 11.4 g/dl (12.0-16.0) L 04/08/23 00:21 Hct 34.0 % (37.0-47.0) L 04/08/23 00:21 MCV 84.6 fL (80.0-100.0) 04/08/23 00:21 MCH 28.4 pg (25.0-34.0) 04/08/23 00:21 MCHC 33.5 g/dL (32.0-36.0) 04/08/23 00:21 RDW Std Deviation 55.6 fL (36.4-46.3) H 04/08/23 00:21 RDW Coeff of Benedicto 18.1 % (11.5-14.5) H 04/08/23 00:21 Plt Count 1 K/uL (130-400) L* D 04/08/23 00:21 Immature Gran % (Auto) 0.8 % 04/08/23 00:21 Neut % (Auto) 49.4 % 04/08/23 00:21 Lymph % (Auto) 40.9 % 04/08/23 00:21 [place] % (Auto) 6.9 % 04/08/23 00:21 Eos % (Auto) 1.8 % 04/08/23 00:21 Baso % (Auto) 0.2 % 04/08/23 00:21 Neut # (Auto) 3.25 K/uL (1.40-6.50) 04/08/23 00:21 Lymph # (Auto) 2.68 K/uL (1.20-3.40) 04/08/23 00:21 [place] # (Auto) 0.45 K/uL (0.11-0.59) 04/08/23 00:21 Eos # (Auto) 0.12 K/uL (0.00-0.50) 04/08/23 00:21 Baso # (Auto) 0.01 K/uL (0.00-0.20) 04/08/23 00:21 Immature Gran # (Auto) 0.05 K/uL (0.01-0.20) 04/08/23 00:21 Platelet Estimate Signific. Decreased (Normal) L 04/08/23 00:21 Polychromasia 1+ 04/08/23 00:21 Sodium 132 mmol/L (136-145) L 04/08/23 00:21 Potassium 3.7 mmol/L (3.5-5.1) 04/08/23 00:21 Chloride 101 mmol/L (98-107) 04/08/23 00:21 Carbon Dioxide 26 mmol/L (21-32) 04/08/23 00:21 Anion Gap 5 (3-11) 04/08/23 00:21 BUN 20 mg/dl (6-23) 04/08/23 00:21 Creatinine 0.82 mg/dl (0.6-1.2) 04/08/23 00: Est Cr Clr Drug Dosing 82.6 ml/min 04/08/23 00:21 Est GFR ( Amer) 119.4 ml/min 04/08/23 00:21 Est GFR (Non-Af Amer) 103.0 ml/min 04/08/23 00:21 BUN/Creatinine Ratio 24.4 (10-20) H 04/08/23 00:21 Glucose 94 mg/dl (70-99(Fasting)) 04/08/23 00:21 Calcium 8.6 mg/dl (8.6-10.3) 04/08/23 00:21 Total Bilirubin 0.7 mg/dl (0.2-1.0) 04/08/23 00:21 AST 27 U/L (13-39) 04/08/23 00:21 ALT 43 U/L (7-52) 04/08/23 00:21 Alkaline Phosphatase 32 U/L (34-104) L 04/08/23 00:21 Total Protein 8.9 gm/dl (6.0-8.3) H 04/08/23 00:21 Albumin 3.5 gm/dl (3.4-5.0) 04/08/23 00:21 Globulin 5.4 gm/dl (2.5-4.0) H 04/08/23 00:21 Albumin/Globulin Ratio 0.6 (0.9-2) L 04/08/23 00:21 Lipase 128 U/L (11-82) H 04/08/23 00:21 HCG, Qual Negative (Negative) 04/08/23 00:21 Blood Type AB Positive 04/08/23 00:21 Antibody Screen NEGATIVE 04/08/23 00:21 PG Care Time/CCT Total # of Minutes Spent Total Time Spent with Patient: Total time spent is greater than 50% in coordination of care (as documented) at patient's floor/unit and/or counseling patient: Coding Level of Care Code 96099 INT INP/OBS CARE 2/55MIN Diagnoses Idiopathic thrombocytopenic purpura (ITP) D69.3 History of syphilis Z86.19
[2023-04-08] MEDS ORDERED: ONDANSETRON INJ 2 MG/ML 2 ML VIAL IV PRN (03:38)
[2023-04-08] MEDS ORDERED: ACETAMINOPHEN 325 MG TAB PO PRN (03:38)
[2023-04-08] MEDS ORDERED: SODIUM CHLORIDE 0.9% 250 ML IV PRN (03:38)
[2023-04-08] MEDS ORDERED: IMMUNE GLOBULIN (HUMAN) SOLN IV STA (03:38)
[2023-04-08] MEDS ORDERED: Octagam 10% IVIG 5 gram bottle IV SCH (04:00)
[2023-04-08] MEDS ORDERED: Octagam 10% IVIG 10 gram bottle IV SCH (05:00)
--- NOTE | 2023-04-08 06:57 | Hospitalist Progress Note ---
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 Idiopathic thrombocytopenic purpura (ITP): -Outpatient labs plt: 7,000, in the ER: plt 1,000 - 1 unit of platelets transfused -Dexamethasone 40mg IV administered -IVIG 1mg/kg daily -Hematology consulted -Repeat CBC in AM. History of syphilis: Patient with history of syphilis for which she is being treated with Doxycycline. She had a reactive RPR with titer of 1:2 during her last hospitalization. Her Treponema pallidum Ab (FTA-ABS) is still pending. -Prev admission: kylee onco- high likelihood that this is secondary ITP in the setting of active syphilis infection -Continue Doxycycline 100mg po BID to complete her course. Last day 04/09/23 Menorrhea: During prev admission treated with IV estrogen and TXA Denied any bleeding now Continue OCPs DVT ppx: SCDs Code: full Regular diet PCU- bleeding precautions Admission and Anticipated Discharge Date Admission Date: April 08, 2023 Supervising Physician Co-Signing Physician Notes I personally examined the patient and verified all victoria points of history and exam, discussed case, and agree with decision making with Dr Marbin Antony feeling okay. Still little bit of a nosebleed, happens mostly after she blows her nose. Vitals noted, in general she is awake and alert pleasant no distress. HEENT normocephalic atraumatic mucous membranes moist. Breathing unlabored no accessory muscle use good effort. Skin shows no rashes no pallor or icterus. Neuro without focal deficits. Refractory ITPwhile she was unable to get her dexamethasone as an outpatient, her dramatic drop in platelets is probably more due to an ongoing and rather stubborn/refractory process. Await further formal input from heme-onc. Fortunately overall hemodynamically stable. Nosebleed is fairly minordiscussed that while it is quite annoying to have the feeling of something clogging her nose, given her thrombocytopenia, I would advise her to not blow her nose to allow the blood vessel to heal rather than frequently dislodging the clot. Questionable syphilis/RPR positivereportedly VDRL positive in [place], is on doxycycline, awaiting VDRL here, I still harbor concerns it might be false positive due to her autoimmune processbut given that this would be very difficult to sort out, and on treated/undertreated syphilis could obviously be catastrophic, will finish out a course of treatment. Otherwise as above Subjective Cecilio is a 22 y/o female with PMH of ITP, history of syphilis admitted due to thrombocytopenia. She was recently admitted due to vaginal bleeding, nausea, fever and lightheadedness. Now here due to platelets outpatient of 7,000. Found on the ER with platelets: 1,000. This morning evaluated found awake, only complaint nose bleeding and petechia. Epistaxis occur when she blow her nose She denied any fever, SOB, nausea, fever, lightheadedness, or any other symptoms. Review of Systems Review of Systems: as per hpi Physical Exam Constitutional: WD/WN, vitals as above Respiratory: normal respiratory effort, lungs clear to auscultation Cardiovascular: RRR, no murmur, no edema Gastrointestinal (Abdomen): normal bowel sounds, soft, nontender, no hepatosplenomegaly Skin: scattered ecchymosis noted on forearms and hands from prior IV sites, bruising on bilateral legs Results & Data Results & Data Vital Signs (Past 12 Hours) Vital Signs Temp Pulse Pulse Resp BP BP Pulse Ox 04/08/23 05:36 86 04/08/23 05:33 36.6 C 51 L 18 115/73 98 04/08/23 03:39 36.8 C 82 16 113/72 98 04/08/23 01:37 80 18 99 04/08/23 01:30 63 18 115/72 99 04/08/23 01:28 77 18 108/77 99 04/08/23 00:06 79 04/07/23 23:52 36.8 C 83 18 106/71 98 O2 Del Method 04/08/23 05:36 04/08/23 05:33 Room Air 04/08/23 03:39 Room Air 04/08/23 01:37 Room Air 04/08/23 01:30 04/08/23 01:28 04/08/23 00:06 04/07/23 23:52 Room Air Resident Activity Tracking Resident Involvement: Resident Care Provided Care Provided: Adult Hospital Medicine
[2023-04-08] MEDS: DOXYCYCLINE HYCLATE 100 MG CAP PO SCH ×2 (08:54→20:16)
[2023-04-08] MEDS: CYANOCOBALAMIN (B-12) 500 MCG TABLET PO SCH (08:55)
[2023-04-08] MEDS ORDERED: DEXAMETHASONE SOD INJ 4 MG/ML VIAL IV SCH (09:00)
[2023-04-08] MEDS ORDERED: NORGESTIMATE/ETHINYL ESTRAD 0.25/0.035MG DSPK PO SCH (09:15)
[2023-04-08] MEDS: dexAMETHasone 40 MG in DEXTROSE 5% 25 ML IV SCH (10:48)
[2023-04-08] MEDS: Octagam 10% IVIG 20 gram bottle IV SCH ×2 (11:50→14:18)
--- NOTE | 2023-04-08 12:10 | Hematology/Oncology Prog Note ---
Date of Service April 08, 2023 Assessment & Plan (1) Idiopathic thrombocytopenic purpura (ITP): Plan: Severe refractory ITP Continue IVIG, we have noticed a platelet response with IVIG again. Continue dexamethasone. Will try to get rituximab/rhogam if needed in the hospital[place] [address]. Outpatient institution of thrombotic agents, the patient was given information about Promacta in the clinic. Will try to get that arranged [place] since she is refractory to steroids. Other consideration would be a splenectomy if she does not respond to IVIG and steroids again Plan Severe refractory ITP Continue IVIG, we have noticed a platelet response with IVIG again. Continue dexamethasone. Will try to get rituximab/rhogam if needed in the hospital. [place] [address]. Outpatient institution of thrombotic agents, the patient was given information about Promacta in the clinic. Will try to get that arranged [place] since she is refractory to steroids. Other consideration would be a splenectomy if she does not respond to IVIG and steroids again Admission and Anticipated Discharge Date Admission Date: April 08, 2023 Subjective Patient admitted from clinic yesterday sent to the ER after she was noted to have platelet count of 7000. She failed to cone picker her dexamethasone after discharge from the hospital earlier this week. She reported no bleeding in the clinic. However platelet count was 7000 again. On admission she was transfused and the platelet count dropped to 1000. Currently reports no active bleeding. Reports no vaginal bleeding Review of Systems Review of Systems: All systems reviewed & are unremarkable except as noted in HPI & below Constitutional: as per Subjective / HPI Eyes: as per Subjective / HPI Respiratory: as per Subjective / HPI Cardiovascular: as per Subjective / HPI Gastrointestinal: as per Subjective / HPI Musculoskeletal: as per Subjective / HPI Physical Exam Constitutional: well developed and well nourished Eyes: normal visual ingram by confrontation, PERRL and EOM intact bilaterally ENMT: external ear and nose normal, oropharynx normal Neck: trachea midline, no thyromegaly Respiratory: normal respiratory effort, lungs clear to auscultation Cardiovascular: RRR, no murmur, no edema Gastrointestinal (Abdomen): normal bowel sounds, soft, nontender, no hepa tosplenomegaly Musculoskeletal: no cyanosis or clubbing, extremities motor strength 5/5 Skin: no rashes, warm and dry Results & Data Vital Signs (Past 12 Hours) Vital Signs Temp Pulse Pulse Resp BP BP Pulse Ox 01/19/24 11:50 36.9 C 51 L 15 130/82 98 04/08/23 10:30 37.1 C 70 15 107/62 96 04/08/23 09:15 36.7 C 71 16 112/71 04/08/23 09:05 62 04/08/23 08:45 36.8 C 79 15 119/76 98 04/08/23 08:27 36.8 C 96 H 16 115/73 04/08/23 07:48 37.0 C 61 16 116/72 96 04/08/23 05:36 86 04/08/23 05:33 36.6 C 51 L 18 115/73 98 04/08/23 03:39 36.8 C 82 16 113/72 98 04/08/23 01:37 80 18 99 04/08/23 01:30 63 18 115/72 99 04/08/23 01:28 77 18 108/77 99 O2 Del Method 04/08/23 11:50 Room Air 04/08/23 10:30 04/08/23 09:15 04/08/23 09:05 04/08/23 08:45 04/08/23 08:27 04/08/23 07:48 Room Air 04/08/23 05:36 04/08/23 05:33 Room Air 04/08/23 03:39 Room Air 04/08/23 01:37 Room Air 04/08/23 01:30 04/08/23 01:28
--- NOTE | 2023-04-08 16:05 | Billing Data ---
Date of Service April 08, 2023 Coding Level of Care Code 38429 SUB INP/OBS CARE
[2023-04-08 16:38] LABS: Basophils # (auto) 0.01 K/uL (0.00-0.20); Basophils % (auto) 0.1 %; Hematocrit (blood only) 29.8 % (37.0-47.0); Hemoglobin 10.1 g/dl (12.0-16.0); Immature Granulocytes # (auto) 0.02 K/uL (0.01-0.20); Immature Granulocytes % (auto) 0.3 %; Lymphocytes # (auto) 0.31 K/uL (1.20-3.40); Lymphocytes % (auto) 4.4 %; Mean Corpuscular Hemoglobin 29.4 pg (25.0-34.0); Mean Corpuscular Hgb Conc 33.9 g/dL (32.0-36.0); Mean Corpuscular Volume 86.9 fL (80.0-100.0); Monocytes # (auto) 0.05 K/uL (0.11-0.59); Monocytes % (auto) 0.7 %; Neutrophils # (auto) 6.63 K/uL (1.40-6.50); Neutrophils % (auto) 94.5 %; Platelet Count 5 K/uL (130-400); Platelet Estimate Signific. Decreased (Normal); RDW Coefficient of Variation 17.4 % (11.5-14.5); RDW Standard Deviation 54.4 fL (36.4-46.3); Red Blood Count 3.43 M/uL (4.20-5.40); White Blood Count 7.02 K/ul (4.8-10.8)
--- NOTE | 2023-04-09 06:47 | Hospitalist Progress Note ---
Date of Service April 09, 2023 Assessment & Plan (1) Idiopathic thrombocytopenic purpura (ITP): Plan: 22yo female recently admitted and discharged for ITP, syphilis now presenting with severe thrombocytopenia. Now admitted for ongoing management of ITP. Idiopathic thrombocytopenic purpura (ITP) -Presenting with ongoing vaginal bleeding x 10 days on initial admission. Treated and discharged home, but was unable to obtain dexamethasone as an outpatient. -Outpatient platelet count 7K, was sent to the ED, where it had dropped to 1K. -S/p platelet transfusion x 1 unit, IV dexamethasone 40 mg, IVIG 1 mg/kg (20 mg) on this admission. -Initially diagnosed with ITP in 2022 at [facility], requiring IVIG, steroids, blood transfusions. Per heme-onc at [facility], high likelihood ITP was secondary to active syphilis infection (see below). -Hematology consulted: * Continue IV dexamethasone 40 mg daily * Continue IVIG 1 mg/kg (5 g, 10 g, 20 g x 2 = 55 g total) daily * Trend platelet count with CBC History of syphilis -Patient with reactive RPR (titer 1:2) during last hospitalization (2022 at [facility]) for which she received doxycycline 100 mg twice daily x 28 days (ongoing, making up 3 missed days). -Possible false positive, given bf tested negative for syphilis. However, given ongoing ITP, managing as active infection certainly reasonable. -Treponema pallidum antibody Ab (FTA-ABS) still pending. * Continue Doxycycline 100 mg p.o. twice daily to complete her course (last day 04/09/23) Menorrhea -Treated with IV estrogen, TXA at last admission -Currently denies bleeding at this time. * Continue OCPs DVT ppx: SCDs Code: full Regular diet PCU- bleeding precautions (2) Petechiae: (3) Sinus bradycardia: (4) ITP secondary to infection: (5) Anemia: (6) Thrombocytopenia: (7) History of syphilis: Admission and Anticipated Discharge Date Admission Date: April 08, 2023 Supervising Physician Co-Signing Physician Notes I personally examined the patient and verified all victoria points of history and exam, discussed case, and agree with decision making with Dr Tanner feeling okay. no further nosebleeds. case d/w heme/onc, guidance appreiated --> given refractory/rebounding platelets - watch at least into tomorrow. Vitals noted, in general she is awake and alert pleasant no distress. HEENT normocephalic atraumatic mucous membranes moist. Breathing unlabored no accessory muscle use good effort. Skin shows no rashes no pallor or icterus. Neuro without focal deficits. Refractory ITPwhile she was unable to get her dexamethasone as an outpatient, her dramatic drop in platelets is probably more due to an ongoing and rather stubborn/refractory process. improved again on decadron and IVIG -d/w heme - watch at least into tomorrow - if doing better then will be able to go home tomorrow/heme tuesday. Questionable syphilis/RPR positivereportedly VDRL positive in [place], is on doxycycline, awaiting VDRL here, I still harbor concerns it might be false positive due to her autoimmune processbut given that this would be very difficult to sort out, and on treated/undertreated syphilis could obviously be catastrophic, will finish out a course of treatment. Otherwise as above Subjective Seated in bed comfortably this morning. No acute events overnight. No acute complaints at this time. Review of Systems Review of Systems: All systems reviewed & are unremarkable except as noted in HPI & below Physical Exam Physical Exam: General: No acute distress. HEENT: PERRLA. Normal conjunctiva, anicteric sclera. Oropharynx normal. Respiratory: Normal respiratory effort, CTABL. Cardiovascular: RRR without murmurs, gallops, or rubs. No pedal edema. GI: Nontender x4 quadrants. Neuro: Alert and oriented x3. Results & Data Results & Data Vital Signs (Past 12 Hours) Vital Signs Temp Pulse Pulse Resp BP Pulse Ox O2 Del Method 04/09/23 04:06 36.8 C 58 L 18 105/65 98 Room Air 04/09/23 00:07 37.1 C 77 18 112/65 95 Room Air 04/08/23 21:58 73 04/08/23 19:48 37.0 C 76 18 114/68 96 Room Air Resident Activity Tracking Resident Involvement: Resident Care Provided Care Provided: Adult Hospital Medicine (5) Anemia Anemia type: unspecified type Qualified Code(s): D64.9 - Anemia, unspecified
[2023-04-09] MEDS: Octagam 10% IVIG 5 gram bottle IV SCH (08:03)
[2023-04-09] MEDS: dexAMETHasone 40 MG in DEXTROSE 5% 25 ML IV SCH (08:03)
[2023-04-09] MEDS: DOXYCYCLINE HYCLATE 100 MG CAP PO SCH ×2 (10:09→21:18)
[2023-04-09] MEDS: CYANOCOBALAMIN (B-12) 500 MCG TABLET PO SCH (10:09)
[2023-04-09] MEDS: Octagam 10% IVIG 10 gram bottle IV SCH (10:10)
[2023-04-09] MEDS: NORGESTIMATE/ETHINYL ESTRAD 0.25/0.035MG DSPK PO SCH (10:10)
[2023-04-09 10:46] LABS: Hematocrit (blood only) 30.5 % (37.0-47.0); Hemoglobin 10.3 g/dl (12.0-16.0); Mean Corpuscular Hemoglobin 29.5 pg (25.0-34.0); Mean Corpuscular Hgb Conc 33.8 g/dL (32.0-36.0); Mean Corpuscular Volume 87.4 fL (80.0-100.0); Platelet Count 29 K/uL (130-400); RDW Coefficient of Variation 17.5 % (11.5-14.5); RDW Standard Deviation 54.5 fL (36.4-46.3); Red Blood Count 3.49 M/uL (4.20-5.40); White Blood Count 11.53 K/ul (4.8-10.8)
[2023-04-09 10:49] LABS: BUN Creatinine Ratio 27.4 (10-20); Calcium 9.1 mg/dl (8.6-10.3); Creatinine Clr Calc Pharmacy 92.8 ml/min; Est GFR (African American) 137.4 ml/min; Est GFR (Non-African American) 118.6 ml/min; Potassium 3.9 mmol/L (3.5-5.1)
[2023-04-09 11:08] LABS: Basophils # (auto) 0.01 K/uL (0.00-0.20); Basophils % (auto) 0.1 %; Eosinophils # (auto) 0.01 K/uL (0.00-0.50); Eosinophils % (auto) 0.1 %; Immature Granulocytes # (auto) 0.05 K/uL (0.01-0.20); Immature Granulocytes % (auto) 0.4 %; Lymphocytes # (auto) 0.75 K/uL (1.20-3.40); Lymphocytes % (auto) 6.5 %; Monocytes # (auto) 0.22 K/uL (0.11-0.59); Monocytes % (auto) 1.9 %; Neutrophils # (auto) 10.49 K/uL (1.40-6.50); RBC Morphology Unremarkable
[2023-04-09] MEDS: Octagam 10% IVIG 20 gram bottle IV SCH ×2 (12:28→14:39)
--- NOTE | 2023-04-09 16:34 | Billing Data ---
Date of Service April 09, 2023 Coding Level of Care Code 96156 SUB INP/OBS CARE MIN
[2023-04-09] MEDS ORDERED: IMMUNE GLOBULIN (HUMAN) SOLN IV SCH (21:00)
[2023-04-10 08:21] LABS: Basophils # (auto) 0.02 K/uL (0.00-0.20); Basophils % (auto) 0.2 %; Eosinophils # (auto) 0.08 K/uL (0.00-0.50); Eosinophils % (auto) 0.7 %; Hematocrit (blood only) 30.7 % (37.0-47.0); Hemoglobin 10.1 g/dl (12.0-16.0); Immature Granulocytes # (auto) 0.07 K/uL (0.01-0.20); Immature Granulocytes % (auto) 0.6 %; Lymphocytes # (auto) 2.78 K/uL (1.20-3.40); Lymphocytes % (auto) 22.8 %; Mean Corpuscular Hgb Conc 32.9 g/dL (32.0-36.0); Mean Corpuscular Volume 88.2 fL (80.0-100.0); Mean Platelet Volume 13.8 fL (9.4-12.4); Monocytes # (auto) 0.93 K/uL (0.11-0.59); Monocytes % (auto) 7.6 %; Neutrophils # (auto) 8.32 K/uL (1.40-6.50); Neutrophils % (auto) 68.1 %; Platelet Count 62 K/uL (130-400); RDW Coefficient of Variation 17.9 % (11.5-14.5); RDW Standard Deviation 57.1 fL (36.4-46.3); Red Blood Count 3.48 M/uL (4.20-5.40)
[2023-04-10 08:25] LABS: BUN Creatinine Ratio 35.1 (10-20); Calcium 9.2 mg/dl (8.6-10.3); Creatinine Clr Calc Pharmacy 87.9 ml/min; Est GFR (African American) 128.8 ml/min; Est GFR (Non-African American) 111.1 ml/min; Potassium 4.2 mmol/L (3.5-5.1)
[2023-04-10] MEDS: Octagam 10% IVIG 5 gram bottle IV SCH (09:20)
[2023-04-10] MEDS: CYANOCOBALAMIN (B-12) 500 MCG TABLET PO SCH (09:28)
[2023-04-10] MEDS: dexAMETHasone 40 MG in DEXTROSE 5% 25 ML IV SCH (09:29)
[2023-04-10] MEDS: NORGESTIMATE/ETHINYL ESTRAD 0.25/0.035MG DSPK PO SCH (09:31)
[2023-04-10] MEDS: Octagam 10% IVIG 10 gram bottle IV SCH (10:03)
[2023-04-10] MEDS: Octagam 10% IVIG 20 gram bottle IV SCH ×2 (11:03→13:06)
--- NOTE | 2023-04-10 14:43 | Discharge Summary ---
Date of Service April 10, 2023 Admission HPI Per Admitting Provider Jhon Hernandes is a pleasant 22yo female with history of syphilis and ITP presenting with thrombocytopenia. Patient was recently hospitalized at [facility] from 04/02 - 04/05/23 after presenting with heavy vaginal bleeding, nausea, fever and lightheadedness. She was found to be anemic with Hgb of 5 and thrombocytopenic with platelet count of 0. She was transfused with 2u PRBCs and 3u platelets. Her vaginal bleeding was treated with TXA and IV estrogen. Her ITP was treated with Decadron 40mg IV daily and IVIG. She was discharged home in improved condition with prescriptions for Decadron x 3 additional days as well as Doxycycline x 5 additional days. Platelet count on day of discharge=49 Patient felt well after discharge. She was unable to fill her prescription for Decadron. Reported that the pharmacy did not have the medication in stock. She noted a small amount of epistaxis. She had her blood counts checked again today and her platelet count was found to be 7 so she was instructed to return to the ER. In the ER she is afebrile, HD stable ER Course: Dexamethasone 40mg IV Admission Exam Per Admitting Provider General: patient resting comfortably, NAD, non-toxic in appearance, AA&O x 4 Skin: warm, dry, intact, scattered ecchymosis noted on forearms and hands from prior IV sites, bruising on bilateral legs. No petechiae. No mucosal bleeding/oozing. HEENT: NC/AT, PERRL, EOMI, anicteric sclera, conjunctiva without injection, external ear normal to inspection and nontender, nares patent, moist mucus membranes, dentition intact, no oropharyngeal lesions, neck supple, trachea midline, no LAD, no thyromegaly, no JVD Heart: +S1/S2, regular, no m/r/g Lungs: equal air entry bilaterally, no rales/rhonchi/wheezes Abd: +BS, soft, NT/ND, no masses/organomegaly/ascites Ext: warm, 2+ pulses in UE/LE bilaterally, no clubbing/cyanosis or edema Neuro: nonfocal, patient AA&O x 4, speech intact, no facial droop, moving all extremities on command with equal strength 5/5 Principal Diagnosis Immune thrombocytopenic purpura Discharge Exam General: No acute distress. HEENT: PERRLA. Normal conjunctiva, anicteric sclera. Oropharynx normal. Respiratory: Normal respiratory effort, CTABL. Cardiovascular: RRR without murmurs, gallops, or rubs. No pedal edema. GI: Nontender x4 quadrants. Neuro: Alert and oriented x3. Discharge Data Allergies Allergy/AdvReac Type Severity Reaction Status Date / Time No Known Allergies Allergy Verified 04/08/23 00:54 Consultations 04/08/23 00:29 ED Decision to Admit Stat 04/08/23 00:49 Consult Hematology Routine Hospital Course (1) Idiopathic thrombocytopenic purpura (ITP): 22yo female recently admitted and discharged for ITP, syphilis now presenting with severe thrombocytopenia. Admitted for ongoing management of ITP. Idiopathic thrombocytopenic purpura (ITP) -Presenting with ongoing vaginal bleeding x 10 days on initial admission. Treated and discharged home, but was unable to obtain dexamethasone as an outpatient. Initially diagnosed with ITP (in 2022 at [facility]) requiring IVIG, steroids, blood transfusions. Per heme-onc at [facility], ITP likely secondary to active syphilis infection (see below). -Outpatient platelet count prior to admission 7K, was sent to the ED, where it had dropped to 1K. -S/p platelet transfusion x 1 unit, IV dexamethasone 40 mg, IVIG 1 mg/kg (20 mg) since admission. -Plt count improved throughout admission 1K-->5K-->29 K-->62K at discharge -Hematology consulted: * IV dexamethasone 40 mg daily. 3/4 doses complete at time of discharge. Sent last p.o. dose to pharmacy to be taken tomorrow. * IVIG 1 mg/kg (5 g, 10 g, 20 g x 2 = 55 g total) daily. Stopped at discharge. * Outpatient follow-up CBC ordered for tomorrow by passenger locomotive engineer to trend platelets (Dr. Scott). Clerk Rating to follow. * Per hematology consult, some consideration for initiation of Promacta while outpatient (due to poor response to steroids) History of syphilis -Patient with reactive RPR (titer 1:2) during last hospitalization (2022 at [facility]) for which she received doxycycline 100 mg twice daily x 28 days (ongoing, making up 3 missed days). -Possible false positive, given bf tested negative for syphilis. However, given ongoing ITP, managing as active infection certainly reasonable. -Treponema pallidum antibody Ab (FTA-ABS) still pending. * Continue Doxycycline 100 mg p.o. twice daily to complete her course (last day 04/09/23). Now completed. Menorrhea -Treated with IV estrogen, TXA at last admission -Currently denies bleeding at this time. * Continue OCPs (2) Petechiae: (3) Sinus bradycardia: (4) ITP secondary to infection: (5) Anemia: (6) Thrombocytopenia: (7) History of syphilis: Total Time Total Time Spent Total Time Spent (In Minutes): <30 Discharge Plan Discharge Items Patient Disposition: Home - Self-Care Reason For Visit: THROMBOCYTOPENIA Discharge Diagnosis: Immune thrombocytopenic purpura (ITP) Activity: Per Instructions section Non-emergency contact: Primary Care Provider Call non-emergency contact if: you have any medication questions Follow-up/Referrals: [facility] [Primary Care Provider] - Shelli Stuart MD [Physician] - Diet: Regular Ambulatory Orders: Complete Blood Count with Diff (Routine) Timeframe: 1 Week Location: Determined by Patient Ordered By: Aron Allan Attending Provider Instructions: Dear Jhon, You was sent to the hospital by your outpatient physician after your labs suggested a severely low amount of platelets, a finding known as thrombocytopenia. You were admitted for management of condition known as immune thrombocytopenic purpura, an attack and destruction of platelets by your own immune system. You were treated with IV steroids and IV immunoglobulin (IVIG), a cocktail of antibody proteins to help your protect your platelets from the autoimmune attack. We monitored your platelet levels regularly to ensure it responded appropriately to the treatment, which it did. Therefore, we feel that you are now ready to be safely discharged home. 1. We sent your final dose of dexamethasone to your pharmacy. Please take dexamethasone 40 mg tomorrow. It is important that you complete your steroid course. If you are unable to afford this medication, please contact your PCP to inform them of this. 2. You completed your course of doxycycline during your admission. You may stop taking it once you are discharged. 3. We made no other changes to the rest of the medications. Please continue to take your other medications as previously prescribed unless otherwise directed to by your primary care provider. 4. You should make a follow-up appointment with your primary care provider within a week of your discharge. It is very important that you make this appointment, as you will need repeat labs to ensure that your platelet counts remain elevated and stable (at 1 week and at 6 weeks). If you are unable to make an appointment with your primary care provider, call the hospital at [phone] and ask to be transferred to the outpatient production planner scheduler. The production planner scheduler will make an appointment for you with one of our outpatient providers. 5. If you experience any prolonged bleeding before you were seen by a doctor, please call your primary care provider immediately. If you are unable to contact your primary care provider, you should go to the emergency room as soon as you can. This is to ensure that this bleeding does not represent another attack on your platelets. 6. We are sending you home with an order for repeat blood test (complete blood count, or CBC), to be completed a week from today. Bring this order to the nearest lab facility to have your blood test done. Alternatively, you can bring it to this hospital or to any [facility] outpatient clinic. Your primary care provider may also order this for you if you are able to secure a follow-up appointment before you are set to complete the blood test. 7. You should have your platelet count rechecked again after 6 weeks by your primary care provider (see #2 above). If you are unable, call Dr. Scott's hematology clinic at [phone] for a follow-up appointment. Let the staff know that he was consulted on your case while you were admitted to the hospital. It has been a pleasure to care for you here at [facility]. If you have any questions or concerns about your care, please reach out to us at [phone]. Pending Studies at Discharge: No Stand-Alone Forms: My [facility] Fast[employer], Smoking Cessation Medications and DC Order Prescriptions: New dexamethasone 20 mg tablet 40 mg PO DAILY 1 Days Qty: 2 0RF Continued desogestrel-ethinyl estradiol [Cyred EQ] 0.15-0.03 mg tablet 1 tab PO DAILY ferrous sulfate 325 mg (65 mg iron) Tablet 325 mg PO DAILY cyanocobalamin (vitamin B-12) [Vitamin B-12] 1,000 mcg tablet 1,000 mcg PO DAILY 30 Days Qty: 30 0RF Discontinued dexamethasone 20 mg tablet 40 mg PO DAILY 3 Days Qty: 6 0RF Rx Instructions: PER PT "PHARMACY DID NOT HAVE READY WHEN PICKED UP OTHER MEDS". doxycycline hyclate 100 mg Capsule 100 mg PO BID 5 Days Qty: 10 0RF Rx Instructions: PER PT "SHOULD HAVE FINISHED, BUT FORGOT SEVERAL DOSES, STILL HAVE 2-3 DAYS WORTH OF MED". Discharge Orders: Discharge Order (Routine); Ordered 04/10/23 Ordered By: Aron Tanner Admission Data Admit Date/Time: 04/08/23 00:49 Attending Provider: Aidan Garcia Admit Provider: Kya Brantley Primary Care Provider: [facility] Other Providers: Shelli Stuart; Kya Brantley Other Interventions: Discharge Summary Assessment (RN) Last Done: 04/10/23 14:34 Supervising Physician Co-Signing Physician Notes I personally examined the patient and verified all victoria points of history and exam, discussed case, and agree with decision making with Dr Tanner feeling okay. feels up to going home. Father at the bedside. Tried to update as best I couldlanguage barrier made this a bit difficult, although his brother is a health and human performance professor in [employer] [employer], and he got him on the phone and I was able to update him about the ITP and what we are doing. Patient herself expresses a very good understanding of her condition, treatment options, prognosis, plan, etc. Discussed case with hematology as wellthey were going to see her and get things set up for the office for tomorrow. Vitals noted, in general she is awake and alert pleasant no distress. HEENT normocephalic atraumatic mucous membranes moist. Breathing unlabored no accessory muscle use good effort. Skin shows no rashes no pallor or icterus. Neuro without focal deficits. Refractory ITPwhile she was unable to get her dexamethasone as an outpatient, her dramatic drop in platelets is probably more due to an ongoing and rather stubborn/refractory process. improved again on decadron and IVIG - home today, outpatient follow-up at hematology tomorrow Questionable syphilis/RPR positivereportedly VDRL positive in [place], is on doxycycline, FTA-ABS here negative. I suspect it was a false positive, and have discussed with patient that I doubt she had syphilisas it relates to her peace of mindbut given the tolerability of doxycycline, and the concern in [place] that her ITP was reactive to syphilis, while I doubt she actually has it it seems safer to finish out the course of doxycycline that she was already partially completed Otherwise as above Resident Activity Tracking Resident Involvement: Resident Care Provided Care Provided: Adult Hospital Medicine
--- NOTE | 2023-04-10 16:48 | Billing Data ---
Date of Service April 10, 2023 Coding Level of Care Code 86166 IN/OBS DISCH 30 MIN/LESS
== END 2023-04-10 16:00 | disposition home or self-care (01) | DRG 813 ==
LOC: SUATTDRO → ED 23:44 → 2N 04-08 00:49 → SUATTDRO 04-08 00:49 → 2N 04-08 02:17